=== PATIENT | male | born 1950 | race Caucasian/White ===

== ENCOUNTER 2018-10-14 11:31 | Inpatient (IN) | payer MEDICARE, BC ==
[2018-10-14] MEDS ORDERED: SODIUM CHLORIDE 0.9% 1,000 ML IV STA (11:49)
--- NOTE | 2018-10-14 11:54 | ED ---
Lower Extremity Injury HPI - General Stated Complaint: hip fracture Time Seen by Provider: 10/14/18 11:38 Source: RN notes reviewed, old records reviewed Limitations: no limitations - History of Present Illness Initial Comments: This is a 68 male the ER for evaluation. Patient presents today for evaluation of right lower extremity pain, right lower extremity tenderness. Denies history of trauma. Patient's been doing with multiple areas of pain as of late. Pain in the back pain in the right leg. No history of cancer per patient, patient is a follow-up with orthopedics for back pain as well as hip pain. Patient was seen by orthopedics today and sent to ER for evaluation regarding nontraumatic right hip fracture. Patient has been amateur on his leg and hip. Patient denies any other complaints no headache chest pain shortness [place] pain no significant recent weight loss MD Complaint: hip injury (Right) -: week(s) Injury: Hip: Right, Thigh: Right Type of Injury: other (No Trauma) Place: home Severity: moderate Severity scale (1-10): 7 Improves With: nothing Worsens With: weight bearing Context: other (no fall or trauma) Other Symptoms: loss of consciousness Associated Symptoms: able to partially bear weight - Related Data Home Medications Medication Instructions Recorded Confirmed Acetaminophen [Tylenol Arthritis] 1,300 mg PO Q12H PRN 10/14/18 10/14/18 Finasteride [Proscar] 5 mg PO DAILY 10/14/18 10/14/18 HYDROcodone/APAP 5-325MG [[place] 1 tab PO BID PRN 10/14/18 10/14/18 5-325] Levothyroxine Sodium [Synthroid] 25 mcg PO DAILY 10/14/18 10/14/18 Methocarbamol [Robaxin-750] 750 mg PO QID PRN 10/14/18 10/14/18 Simvastatin [Zocor] 20 mg PO HS 10/14/18 10/14/18 Tamsulosin HCl [Flomax] 0.4 mg PO DAILY 10/14/18 10/14/18 Warfarin [Coumadin] 5 mg PO FR 10/14/18 10/14/18 Warfarin [Coumadin] 7.5 mg PO SUMOTUWETHSA 10/14/18 10/14/18 Allergies Allergy/AdvReac Type Severity Reaction Status Date / Time No Known Allergies Allergy Unverified 10/14/18 12:37 Review of Systems ROS Statement: Those systems with pertinent positive or pertinent negative responses have been documented in the HPI. ROS Other: All systems not noted in ROS Statement are negative. General Exam General appearance: alert, in no apparent distress Head exam: Present: atraumatic, normocephalic, normal inspection Eye exam: Present: normal appearance, PERRL, EOMI. Absent: scleral icterus, conjunctival injection, periorbital swelling ENT exam: Present: normal exam, mucous membranes moist Neck exam: Present: normal inspection. Absent: tenderness, meningismus, lymphadenopathy Respiratory exam: Present: normal lung sounds bilaterally. Absent: respiratory distress, wheezes, rales, rhonchi, stridor Cardiovascular Exam: Present: regular rate, normal rhythm, normal heart sounds. Absent: systolic murmur, diastolic murmur, rubs, gallop, clicks GI/Abdominal exam: Present: soft, normal bowel sounds. Absent: distended, tenderness, guarding, rebound, rigid Extremities exam: Present: normal inspection, tenderness (R hip), normal capillary refill, other (RLE tenderness). Absent: full ROM (decreased), pedal edema, joint swelling, calf tenderness Back exam: Present: normal inspection Neurological exam: Present: alert, oriented X3, CN II-XII intact Psychiatric exam: Present: normal affect, normal mood Skin exam: Present: warm, dry, intact, normal color. Absent: rash Course Vital Signs 10/14/18 10/14/18 10/14/18 11:52 12:00 12:30 Temperature 98.2 F Pulse Rate 85 72 71 Respiratory 15 14 15 Rate Blood Pressure 132/91 132/91 133/90 O2 Sat by Pulse 99 95 98 Oximetry 10/14/18 10/14/18 13:00 13:30 Temperature Pulse Rate 75 74 Respiratory 15 14 Rate Blood Pressure 125/84 138/92 O2 Sat by Pulse 99 95 Oximetry - Reevaluation(s) Reevaluation #1: 10/14/18 11:52 Medical record reviewed Reevaluation #2: 10/14/18 11:[address] Herring's office for evaluation regarding right hip fracture nontraumatic Reevaluation #3: 10/14/18 14:13 Patient not requiring pain control Medical Decision Making - Medical Decision Making 68 male the ER for evaluation sent in for evaluation regarding right hip pain. Patient was sent in with orthopedics for positive outpatient x-ray of right hip fracture nontraumatic. Patient be admitted for surgical evaluation and intervention - Lab Data Result diagrams: 10/14/18 11:43 10/14/18 11:43 Lab Results 10/14/18 10/14/18 10/14/18 Range/Units 11:43 11:43 11:43 WBC 7.4 (3.8-10.6) k/uL RBC 5.82 (4.30-5.90) m/uL Hgb 17.4 (13.0-17.5) gm/dL Hct 51.2 (39.0-53.0) % MCV 87.9 (80.0-100.0) fL MCH 29.8 (25.0-35.0) pg MCHC 33.9 (31.0-37.0) g/dL RDW 13.9 (11.5-15.5) % Plt Count 258 (150-450) k/uL Neutrophils % 70 % Lymphocytes % 15 % Monocytes % 10 % Eosinophils % 2 % Basophils % 2 % Neutrophils # 5.2 (1.3-7.7) k/uL Lymphocytes # 1.1 (1.0-4.8) k/uL Monocytes # 0.7 (0-1.0) k/uL Eosinophils # 0.1 (0-0.7) k/uL Basophils # 0.1 (0-0.2) k/uL PT (9.0-12.0) sec INR (<1.2) APTT (22.0-30.0) sec Sodium 138 (137-145) mmol/L Potassium 4.8 (3.5-5.1) mmol/L Chloride 105 (98-107) mmol/L Carbon Dioxide 19 L (22-30) mmol/L Anion Gap 14 mmol/L BUN 36 H (9-20) mg/dL Creatinine 1.07 (0.66-1.25) mg/dL Est GFR (CKD-EPI)AfAm 83 (>60 ml/min/1.73 sqM) Est GFR (CKD-EPI)NonAf 72 (>60 ml/min/1.73 sqM) Glucose 109 H (74-99) mg/dL Plasma Lactic Acid Rich 2.4 H* (0.7-2.0) mmol/L Calcium 12.0 H (8.4-10.2) mg/dL Phosphorus 3.2 (2.5-4.5) mg/dL Magnesium 2.0 (1.6-2.3) mg/dL Total Bilirubin 0.6 (0.2-1.3) mg/dL AST 26 (17-59) U/L ALT 33 (21-72) U/L Alkaline Phosphatase 116 (38-126) U/L Creatine Kinase 61 (55-170) U/L Troponin I (0.000-0.034) ng/mL Total Protein 10.1 H (6.3-8.2) g/dL Albumin 4.6 (3.5-5.0) g/dL TSH 1.850 (0.465-4.680) mIU/L 10/14/18 10/14/18 Range/Units 11:43 11:43 WBC (3.8-10.6) k/uL RBC (4.30-5.90) m/uL Hgb (13.0-17.5) gm/dL Hct (39.0-53.0) % MCV (80.0-100.0) fL MCH (25.0-35.0) pg MCHC (31.0-37.0) g/dL RDW (11.5-15.5) % Plt Count (150-450) k/uL Neutrophils % % Lymphocytes % % Monocytes % % Eosinophils % % Basophils % % Neutrophils # (1.3-7.7) k/uL Lymphocytes # (1.0-4.8) k/uL Monocytes # (0-1.0) k/uL Eosinophils # (0-0.7) k/uL Basophils # (0-0.2) k/uL PT 44.6 H (9.0-12.0) sec INR 4.6 H (<1.2) APTT 32.6 H (22.0-30.0) sec Sodium (137-145) mmol/L Potassium (3.5-5.1) mmol/L Chloride (98-107) mmol/L Carbon Dioxide (22-30) mmol/L Anion Gap mmol/L BUN (9-20) mg/dL Creatinine (0.66-1.25) mg/dL Est GFR (CKD-EPI)AfAm (>60 ml/min/1.73 sqM) Est GFR (CKD-EPI)NonAf (>60 ml/min/1.73 sqM) Glucose (74-99) mg/dL Plasma Lactic Acid Rich (0.7-2.0) mmol/L Calcium (8.4-10.2) mg/dL Phosphorus (2.5-4.5) mg/dL Magnesium (1.6-2.3) mg/dL Total Bilirubin (0.2-1.3) mg/dL AST (17-59) U/L ALT (21-72) U/L Alkaline Phosphatase (38-126) U/L Creatine Kinase (55-170) U/L Troponin I 0.014 (0.000-0.034) ng/mL Total Protein (6.3-8.2) g/dL Albumin (3.5-5.0) g/dL TSH (0.465-4.680) mIU/L - EKG Data -: EKG Interpreted by Me (EKG shows normal sinus rhythm rate of 80, [place] 144, QRS 102, QTc 429) - Radiology Data Radiology results: report reviewed (Chest x-rays negative for acute disease), image reviewed Disposition Clinical Impression: Closed right hip fracture Disposition: ADMITTED IP TO THIS [facility] Condition: Good Is patient prescribed a controlled substance at d/c from ED?: No Referrals: Saskia Segovia MD [Primary Care Provider] - 1-2 days
[2018-10-14 12:16] LABS: Basophils # (A) 0.1 k/uL (0-0.2); Basophils % (A) 2 %; Eosinophils # (A) 0.1 k/uL (0-0.7); Eosinophils % (A) 2 %; HCT 51.2 % (39.0-53.0); HGB 17.4 gm/dL (13.0-17.5); Lymphocytes # (A) 1.1 k/uL (1.0-4.8); Lymphocytes % (A) 15 %; MCH 29.8 pg (25.0-35.0); MCHC 33.9 g/dL (31.0-37.0); MCV 87.9 fL (80.0-100.0); Monocytes # (A) 0.7 k/uL (0-1.0); Monocytes % (A) 10 %; Neutrophils # (A) 5.2 k/uL (1.3-7.7); Neutrophils % (A) 70 %; Platelet Count 258 k/uL (150-450); RBC 5.82 m/uL (4.30-5.90); RDW 13.9 % (11.5-15.5); WBC 7.4 k/uL (3.8-10.6)
[2018-10-14 12:30] LABS: INR 4.6 (<1.2); Partial Thromboplastin Time 32.6 sec (22.0-30.0); Prothrombin Time 44.6 sec (9.0-12.0)
[2018-10-14 12:35] LABS: Albumin 4.6 g/dL (3.5-5.0); Phosphorus 3.2 mg/dL (2.5-4.5); Total Bilirubin 0.6 mg/dL (0.2-1.3); Total Protein 10.1 g/dL (6.3-8.2)
[2018-10-14 12:36] LABS: Potassium 4.8 mmol/L (3.5-5.1)
--- NOTE | 2018-10-14 12:51 | XR ---
EXAMINATION TYPE: XR chest 2V DATE OF EXAM: 10/14/2018 COMPARISON: NONE HISTORY: Weakness TECHNIQUE: Frontal and lateral views of the chest are obtained. FINDINGS: Patchy right infrahilar airspace disease may represent atelectasis. No pleural effusion or pneumothorax.. Slight eventration of the right hemidiaphragm. The cardiac silhouette size is within normal limits. The osseous structures are intact. IMPRESSION: Patchy right infrahilar airspace disease may be on the basis of atelectasis.
[2018-10-14] MEDS ORDERED: SODIUM CHLORIDE 0.9% 1,000 ML IV ONE (15:11)
[2018-10-14] MEDS ORDERED: ACETAMINOPHEN TAB 500 MG TAB PO PRN (16:23)
[2018-10-14] MEDS ORDERED: METHOCARBAMOL 750 MG TAB PO PRN (16:23)
[2018-10-14] MEDS ORDERED: IPRATROPIUM-ALBUTEROL 3 ML NEB INHALATION PRN (16:25)
[2018-10-14] MEDS: FINASTERIDE 5 MG TAB PO SCH (17:19)
[2018-10-14] MEDS: TAMSULOSIN 0.4 MG CAP.ER.24H PO SCH (17:19)
[2018-10-14] MEDS ORDERED: ALPRAZolam 0.25 MG TAB PO PRN (21:09)
[2018-10-14] MEDS ORDERED: HYDROmorphone 0.5 MG/0.5 ML SYRINGE IVP PRN (21:09)
[2018-10-14] MEDS: IOPAMIDOL-300 CONTRAST 30 ML VIAL (ORAL USE) PO PRN ×2 (21:22→22:21)
[2018-10-14] MEDS: SODIUM CHLORIDE 0.9% 1,000 ML IV SCH (21:22)
[2018-10-14] MEDS: IPRATROPIUM-ALBUTEROL 3 ML NEB INHALATION SCH (21:27)
[2018-10-14 22:30] LABS: Appearance,Urine Cloudy (Clear); Bacteria,Urine Rare /hpf; Bilirubin,Urine Negative (Negative); Blood,Urine Negative (Negative); Color,Urine Light Yellow; Glucose,Urine (UA) Negative (Negative); Ketones,Urine Negative (Negative); Leukocyte Esterase,Urine Negative (Negative); Mucus,Urine Rare /hpf; Nitrite,Urine Negative (Negative); PH, Urine 6.5 (5.0-8.0); Protein,Urine Negative (Negative); RBC,Urine 3 /hpf (0-5); Squamous Epithelial Cell,Urine <1 /hpf (0-4); Urobilinogen,Urine <2.0 mg/dL (<2.0); WBC,Urine <1 /hpf (0-5)
--- NOTE | 2018-10-14 23:25 | CT ---
EXAM: CT Head Without Intravenous Contrast CLINICAL HISTORY: Evaluate for metastatic disease to the brain. TECHNIQUE: Axial computed tomography images of the head/brain without intravenous contrast. CTDI is 49.1 mGy and DLP is 1111 mGy-cm. This CT exam was performed using one or more of the following dose reduction techniques: automated exposure control, adjustment of the mA and/or kV according to patient size, and/or use of iterative reconstruction technique. COMPARISON: None. FINDINGS: Brain: No extra-axial collection. Bony skull is unremarkable. No hemorrhage. Midline shift: No midline shift or mass-effect is noted. Ventricles: Ventricular system is age appropriate. Bones/joints: See above. Soft tissues: Unremarkable. Sinuses: Unremarkable as visualized. No acute sinusitis. Mastoid air cells: Visualized sinuses and mastoid air cells are unremarkable. IMPRESSION: This study is performed without intravenous contrast administration. Grossly, there is no evidence of metastatic disease. Reimaging with contrast administration is advised for the sake of completeness to exclude subtle metastatic lesions.
[2018-10-14] MEDS: HYDROcodone/APAP 5-325MG 1 EACH TAB PO PRN (23:29)
--- NOTE | 2018-10-15 00:09 | CT ---
EXAM: CT Chest With Intravenous Contrast CLINICAL HISTORY: Evaluate for metastatic disease. TECHNIQUE: Axial computed tomography images of the chest with intravenous contrast. CTDI is 21.2 mGy and DLP is 410.7 mGy-cm. This CT exam was performed using one or more of the following dose reduction techniques: automated exposure control, adjustment of the mA and/or kV according to patient size, and/or use of iterative reconstruction technique. COMPARISON: None FINDINGS: Lungs: There is a 5.6 x 4.7 cm aggressive mass lesion within the posterior medial aspect of the right upper lobe best seen on series 201 image 24. This mass lesion has invaded the thoracic vertebral body (T6) at this level and has encroached within the spinal canal with mass-effect upon the thoracic segment of the spinal cord. A 1.5 x 1 cm noncalcified pleural-based nodule is noted posterior laterally of the right lower lobe, best seen on series 201 image 54. Metastatic lesion should be considered. Pleural space: Unremarkable. No pneumothorax. No significant effusion. Heart: Unremarkable. No cardiomegaly. No significant pericardial effusion. Thyroid: 0.8 cm calcified nodule left lobe of the thyroid gland. Bones/joints: Scattered lucencies are noted throughout the thoracic spine worrisome for metastatic disease. Best seen on series 201 image 45, a 1.9 x 1.5 cm soft tissue nodule is noted within the posterior medial aspect of the mid left rib with bony destruction and pathologic fracture noted. Similar findings are noted posterior medially at the left lung base best seen on series 201 image 61. Soft tissues: Unremarkable. Vasculature: Unremarkable. No thoracic aortic aneurysm. Lymph nodes: No pathologic hilar, mediastinal, or axillary lymphadenopathy. IMPRESSION: There is an aggressive mass lesion posterior medially within the right upper lobe with bony destruction of what appears represent the T6 vertebral body. There is invasion into the of spinal canal with mass- effect upon the right lateral aspect of the thoracic segment of the spinal cord. Extensive and diffuse metastatic disease to bone including pathologic fractures of ribs is noted as discussed above. EXAM: CT Abdomen and Pelvis With Intravenous Contrast CLINICAL HISTORY: Evaluate for metastatic disease. TECHNIQUE: Axial computed tomography images of the abdomen and pelvis with intravenous contrast. CTDI is 21.2 mGy and DLP is 410.7 mGy-cm. This CT exam was performed using one or more of the following dose reduction techniques: automated exposure control, adjustment of the mA and/or kV according to patient size, and/or use of iterative reconstruction technique. COMPARISON: None. FINDINGS: Lung bases: Unremarkable. No mass. No consolidation. ABDOMEN: Liver: Unremarkable. No mass. Gallbladder and bile ducts: Unremarkable. No calcified stones. No ductal dilation. Pancreas: Unremarkable. No mass. No ductal dilation. Spleen: Unremarkable. No splenomegaly. Adrenals: Unremarkable. No mass. Kidneys and ureters: Bilateral parapelvic renal cysts. Largest parapelvic cyst measures or possibly 2.8 cm. No hydronephrosis. Stomach and bowel: Unremarkable. No obstruction. No mucosal thickening. PELVIS: Appendix: No findings to suggest acute appendicitis. Bladder: Unremarkable. No mass. Reproductive: Enlarged prostate gland. Prostate gland measures 4.4 x 6.4 cm. ABDOMEN and PELVIS: Intraperitoneal space: Unremarkable. No free air. No significant fluid collection. Bones/joints: Metastatic disease to the proximal right femur is noted with a pathologic fracture of the right femoral neck noted. Scattered lucencies throughout the osseous structures are worrisome for diffuse metastatic disease to bone. No dislocation. Soft tissues: Unremarkable. Vasculature: Unremarkable. No abdominal aortic aneurysm. Lymph nodes: Unremarkable. No enlarged lymph nodes. IMPRESSION: Extensive and diffuse metastatic disease to bone. There is extensive meta static disease of the proximal right femur with a pathologic fracture of the right femoral neck noted. <MYCVCSECTION> [employer] 10/15/18 00:53 Call Doctor Regarding Spinal Cord Compression, called [facility]a on 10/15 00:51 (-04:00)
--- NOTE | 2018-10-15 00:13 | CT ---
EXAM: CT Right Lower Extremity With Intravenous Contrast, Hip CLINICAL HISTORY: Metastatic disease. TECHNIQUE: Axial computed tomography images of the right hip with intravenous contrast. CTDI is 19.6 mGy and DLP is 410.7 mGy-cm. This CT exam was performed using one or more of the following dose reduction techniques: automated exposure control, adjustment of the mA and/or kV according to patient size, and/or use of iterative reconstruction technique. COMPARISON: CT imaging of the abdomen and pelvis performed on the same day. FINDINGS: Bones/joints: There is diffuse and extensive metastatic disease to bone including the right hemipelvis. There is extensive diffuse metastatic disease of the proximal femur with an associated pathologic fracture of the right femoral neck. Varus angulation at the fracture site is noted. No dislocation. Soft tissues: Unremarkable. No abnormal contrast enhancement. IMPRESSION: Diffuse and extensive osseous metastatic disease. Metastatic disease to the proximal right femur. Acute pathologic fracture of the right femoral neck with varus angulation.
[2018-10-15] MEDS: TEMAZEPAM 15 MG CAP PO PRN (01:55)
--- NOTE | 2018-10-15 04:58 | HP ---
HISTORY AND PHYSICAL DATE OF SERVICE: 10/14/2018 CHIEF COMPLAINTS: Hip pain and fracture and back pain. HISTORY OF PRESENT ILLNESS: This 68-year-old gentleman with a past history of DVT of left leg, history of hypertension, hyperlipidemia, history of enlarged prostate, being followed by Dr. Segovia in the outpatient setting was apparently working heavily on his newly acquired CBIT A/S [facility]. The patient apparently had some back pain and being evaluated by Dr. Carter and was suggested conservative line of management with pain medication as well as Motrin, but subsequently the patient worked more after some relief, but about 2 weeks ago the patient had developed significant right hip pain, which has progressively increased in intensity. Evaluated by Dr. Herring in the office today. The patient was found to have right hip fracture and the patient is referred to [facility] Emergency Room and admitted for evaluation and treatment. There is no history of fever, rigors or chills. No history of headache, loss of consciousness or seizure. No chest pain, palpitations, hematochezia or melena. No history of weight gain or weight loss recently. PAST MEDICAL HISTORY: History of DVT, hypertension, hyperlipidemia, history of hypothyroidism, history of enlarged prostate. MEDICATIONS: 1. Coumadin 5 mg Friday and 7.5 mg Friday, Friday, Friday, Friday, , Friday. 2. Flomax 0.4 daily. 3. Zocor 20 mg q.h.s. 4. Robaxin 750 mg q.i.d. p.r.n. 5. Synthroid 25 mcg. 6. Zumbrota 5 mg b.i.d. p.r.n. 7. Proscar 5 mg p.o. 8. Tylenol 1300 mg p.o. b.i.d. p.r.n. ALLERGIES: None. FAMILY HISTORY: History of prostate disorder in the family. SOCIAL HISTORY: History of smoking. No alcohol. REVIEW OF SYSTEMS: ENT: No diminished vision. No diminished hearing. CARDIOVASCULAR: No angina. RESPIRATORY: As mentioned earlier. GI: No nausea. : As mentioned earlier. NERVOUS SYSTEM: No numbness or weakness. ALLERGY/IMMUNOLOGY: No asthma or hayfever. MUSCULOSKELETAL: As mentioned earlier. HEMATOLOGY: As mentioned earlier. ENDOCRINE: Hypothyroidism. CONSTITUTIONAL: As mentioned earlier. PSYCHIATRY: As mentioned earlier. PHYSICAL EXAMINATION: Alert and oriented x3. Pulse 75, blood pressure 130/70, respiration 17, temperature 98.9, pulse ox 97% on room air. HEENT: Conjunctivae normal. Oral mucosa moist. NECK: No jugular venous distention. No lymph node enlargement. CARDIOVASCULAR: S1, S2. RESPIRATORY: Diminished breath sounds at the bases. No rhonchi, no crackles. ABDOMEN: Soft. Minimal tenderness in the right lower ( ) area. No mass palpable. No guarding, no rigidity. Bowel sounds present. LEGS: Right hip movements are painful. Otherwise, no rash, no edema, no swelling. NERVOUS SYSTEM: Higher functions mentioned earlier. Moves all limbs except the right limb. No focal deficits. LYMPHATICS: No lymph node in neck or axilla. SKIN: The patient has Manrique de Yakov spots on the chest. JOINTS: As mentioned earlier. LABS: CBC within normal limits. INR is 4.6. Sodium 130, potassium 4.8 and glucose 109. Lactic acid 2.42, improved to 1.8. Calcium is 12 and total protein is 10.1. ASSESSMENT: 1. Back pain and acute right hip pain with right hip fracture, rule out pathologic fracture. 2. Coumadin coagulopathy. 3. Hypercalcemia, rule out malignancy. 4. Possible right lung pneumonia. 5. Hyperglobulinemia, rule out multiple myeloma. 6. History of deep vein thrombosis. 7. Hyperlipidemia. 8. Hypothyroidism. 9. History enlarged prostate. 10.Coumadin coagulopathy. RECOMMENDATIONS AND DISCUSSION: In this 68-year-old gentleman who presented with multiple complex medical issues, we will monitor the patient closely, continue the current medications, continue symptomatic treatment. Will also initiate empiric antibiotics for the possible right lung pneumonia. Otherwise, I will order CT scans of the chest, abdomen and pelvis and as well as bone scan for evaluation. Serum protein electrophoreses also will be ordered. Continue with IV hydration. We will closely monitor with multiple consultants including Hematology/ Oncology. Prognosis guarded. Further recommendations to follow. MMODL / IJN: [id number] /
[2018-10-15] MEDS: LEVOTHYROXINE 25 MCG TAB PO SCH (05:14)
[2018-10-15 07:17] LABS: Basophils % (A) 1 %; Eosinophils # (A) 0.2 k/uL (0-0.7); Eosinophils % (A) 3 %; HCT 45.6 % (39.0-53.0); HGB 14.9 gm/dL (13.0-17.5); Lymphocytes # (A) 1.2 k/uL (1.0-4.8); Lymphocytes % (A) 19 %; MCH 29.5 pg (25.0-35.0); MCHC 32.6 g/dL (31.0-37.0); MCV 90.5 fL (80.0-100.0); Mean Platelet Volume 7.3; Monocytes # (A) 0.6 k/uL (0-1.0); Monocytes % (A) 9 %; Neutrophils # (A) 4.5 k/uL (1.3-7.7); Neutrophils % (A) 68 %; Platelet Count 213 k/uL (150-450); RBC 5.04 m/uL (4.30-5.90); RDW 15.3 % (11.5-15.5); WBC 6.6 k/uL (3.8-10.6)
[2018-10-15 07:26] LABS: INR 3.5 (<1.2); Prothrombin Time 33.8 sec (9.0-12.0)
[2018-10-15 08:09] LABS: Calcium 10.3 mg/dL (8.4-10.2); Potassium 4.5 mmol/L (3.5-5.1)
[2018-10-15] MEDS: IPRATROPIUM-ALBUTEROL 3 ML NEB INHALATION SCH ×3 (08:29→19:30)
[2018-10-15] MEDS: HYDROcodone/APAP 5-325MG 1 EACH TAB PO PRN (08:36)
[2018-10-15] MEDS ORDERED: PHYTONADIONE ORAL 5 MG/5 ML ORAL.SYRG PO STA (09:41)
[2018-10-15 12:01] LABS: Protein, Total 7.8 g/dL (6.2-8.2)
[2018-10-15] MEDS: DEXAMETHASONE SOD PHOSPHATE 4 MG/ML 1 ML VIAL IV SCH ×3 (12:09→18:15)
--- NOTE | 2018-10-15 12:41 | P.CNOR ---
History of Present Illness - [facility] Consult date: 10/15/18 Consult reason: fracture History of present illness: Patient is a pleasant 68-year-old male that is known to our office and presented initially with right hip pain. X-rays in office showed a fracture of the right femoral neck which could be pathologic. He was sent to [facility] for further workup and management. He continues to have hip pain as expected. He was also noted to have labored breathing in office. He was admitted through the emergency department and admitted to internal medicine where several tests have been performed. Oncology has been consulted as well. Computed tomography scan of the chest, abdomen and pelvis and right hip show what appears to be metastatic-type lesions to the right proximal femur. There is also a mass encroaching upon the thoracic spinal cord. He has no new complaints today. Review of Systems All systems: negative Constitutional: Denies chills, Denies fever Eyes: denies blurred vision, denies pain Ears, nose, mouth and throat: Denies headache, Denies sore throat Cardiovascular: Denies chest pain, Denies shortness of breath Respiratory: Denies cough Gastrointestinal: Denies abdominal pain, Denies diarrhea, Denies nausea, Denies vomiting Musculoskeletal: Denies myalgias Integumentary: Denies pruritus, Denies rash Neurological: Denies numbness, Denies weakness Psychiatric: Denies anxiety, Denies depression Endocrine: Denies fatigue, Denies weight change Past Medical History Past Medical History: Deep Vein Thrombosis (DVT), Hyperlipidemia, Thyroid Disorder Additional Past Medical History / Comment(s): Enlarged prostate History of Any Multi-Drug Resistant Organisms: None Reported Past Surgical History: No Surgical Hx Reported Past Anesthesia/Blood Transfusion Reactions: No Reported Reaction Past Psychological History: No Psychological Hx Reported Smoking Status: Never smoker Past Alcohol Use History: Occasional Past Drug Use History: None Reported - Past Family History Father Family Medical History: Prostate Disorder Brother(s) Family Medical History: Prostate Disorder Medications and Allergies Home Medications Medication Instructions Recorded Confirmed Type Acetaminophen [Tylenol Arthritis] 1,300 mg PO Q12H PRN 10/14/18 10/14/18 History Finasteride [Proscar] 5 mg PO DAILY 10/14/18 10/14/18 History HYDROcodone/APAP 5-325MG [[place] 1 tab PO BID PRN 10/14/18 10/14/18 History 5-325] Levothyroxine Sodium [Synthroid] 25 mcg PO DAILY 10/14/18 10/14/18 History Methocarbamol [Robaxin-750] 750 mg PO QID PRN 10/14/18 10/14/18 History Simvastatin [Zocor] 20 mg PO HS 10/14/18 10/14/18 History Tamsulosin HCl [Flomax] 0.4 mg PO DAILY 10/14/18 10/14/18 History Warfarin [Coumadin] 5 mg PO FR 10/14/18 10/14/18 History Warfarin [Coumadin] 7.5 mg PO SUMOTUWETHSA 10/14/18 10/14/18 History Allergies Allergy/AdvReac Type Severity Reaction Status Date / Time No Known Allergies Allergy Unverified 10/14/18 12:37 Physical Examination In general he is in no acute distress. He is AO 5. Inspection of the right lower extremity is benign. There is no deformity. Ra nge of motion of the hip is not tested due to fracture. Neurovascular status with Motor and sensation are grossly intact throughout the lower extremities. The calves are soft and nontender. there is 2+ dorsalis pedis pulse and less than 2 second capillary refill present. Results - Labs Labs: Abnormal Lab Results - Last 24 Hours (Table) 10/14/18 10/14/18 10/14/18 Range/Units 11:43 11:43 21:45 ESR (0-15) mm/hr PT (9.0-12.0) sec INR (<1.2) Carbon Dioxide 19 L (22-30) mmol/L BUN 36 H (9-20) mg/dL Glucose 109 H (74-99) mg/dL Plasma Lactic Acid Rich 2.4 H* (0.7-2.0) mmol/L Calcium 12.0 H (8.4-10.2) mg/dL Total Protein 10.1 H (6.3-8.2) g/dL Urine Bacteria Rare H (None) /hpf Urine Mucus Rare H (None) /hpf 10/14/18 10/15/18 10/15/18 Range/Units 22:33 06:40 06:40 ESR 28 H (0-15) mm/hr PT 33.8 H (9.0-12.0) sec INR 3.5 H (<1.2) Carbon Dioxide (22-30) mmol/L BUN 26 H (9-20) mg/dL Glucose (74-99) mg/dL Plasma Lactic Acid Rich (0.7-2.0) mmol/L Calcium 10.3 H (8.4-10.2) mg/dL Total Protein (6.3-8.2) g/dL Urine Bacteria (None) /hpf Urine Mucus (None) /hpf H & H 10/14/18 10/15/18 Range/Units 11:43 06:40 Hgb 17.4 14.9 (13.0-17.5) gm/dL Hct 51.2 45.6 (39.0-53.0) % Coagulation 10/14/18 10/15/18 Range/Units 11:43 06:40 INR 4.6 H 3.5 H (<1.2) Result Diagrams: 10/15/18 06:40 10/15/18 06:40 - Diagnostic results Hip CT: report reviewed, image reviewed Assessment and Plan (1) Closed right hip fracture Narrative/Plan: Patient is been seen by Dr. Herring. From an orthopedic standpoint in regards to his pathologic right hip fracture there are no plans for surgical invention here [facility]. We recommended transfer possibly to [facility] where they have an orthopedic oncologist for surgical intervention should they desire. He would also need the mass encroaching upon the thoracic spine to be addressed as well at a tertiary facility. We recommend continued pain management and nonweightbearing while an inpatient here at [facility]. Current Visit: Yes Status: Acute Priority: Medium Code(s): S72.001A - FRACTURE OF UNSP PART OF NECK OF RIGHT FEMUR, INIT SNOMED Code(s): 556853927 Time with Patient: Less than 30
--- NOTE | 2018-10-15 14:36 | MR ---
EXAMINATION TYPE: MR thoracic spine wo/w con DATE OF EXAM: 10/15/2018 2:18 PM COMPARISON: NONE HISTORY: Cord compression/Lung mass/Admitted for Rt hip fx Multiplanar MultiSpin echo imaging of the thoracic spine was performed. Pre and postcontrast enhance d images submitted. Contrast: 9 mL Gadavist Lobulated right paraspinal at T6 destructive mass measuring 5.6 x 4.2 x 3.4 cm with destruction of th e adjacent vertebral body and epidural extension. There is no evidence for infiltration into the spin al cord at this level mild cord displacement is noted from right to left. Loss of vertebral body heig ht involving T6. Additional lesions identified involving virtually all thoracic segments. Right lung mass. See CT from 10/14/2018. IMPRESSION: 1. Right paraspinal mass with infiltration into the T6 vertebral segment and epidural space. Mass is less than 1 mm from the spinal cord without infiltration at this time. There is mild displacement of the spinal cord from left to right without overt compression at this time. Multiple metastatic lesion s are noted of the visualized spine.
--- NOTE | 2018-10-15 15:05 | NM ---
EXAMINATION TYPE: NM bone scan whole body DATE OF EXAM: 10/15/2018 COMPARISON: NONE HISTORY: Abnormal CT scan rule out metastatic disease Delayed whole-body scanning was performed following the injection of 25.2 mCi Tc 99m MDP. Images acq uired 6 hours post injection. FINDINGS: Intense radiotracer accumulation noted at the approximate right paraspinal T6 level and T6 vertebral body compatible with known mass and metastatic disease. Multiple foci of increased radiotracer accumu lation involving numerous thoracic segments as well as L1. Bilateral lateral rib uptake noted. Intens e uptake noted to overlie the left scapular tip. Intense uptake noted to involve the right femoral he ad and neck. IMPRESSION: Findings compatible with metastatic disease. Probable pathologic fracture right hip.
--- NOTE | 2018-10-15 15:42 | P.CNPUL ---
History of Present Illness Consult date: 10/15/18 Reason for consult: lung mass History of present illness: This is a 68-year-old male patient was having pain in his right posterior shoulder blade and right hip area. He was progressively getting worse to the point where he was unable to walk and he was moving with the help of a cane. [facility] and he was seen by Dr. Herring and the patient was found to have a pathologic fracture of the right femoral neck. The patient did not have any trauma prior to this event. He was immediately sent over to the hospital where he was subjected to further workup and he was found to have hypercalcemia with a calcium level of 12 and further evaluation with a CAT scan of the chest abdomen and pelvis showed a 5.6 x 4.7 cm mass within the posterior medial aspect of the right upper lobe and the mass was invading the thoracic vertebral body at the level of T6 and was including the spinal canal with mass effect on the thoracic segment of the spinal cord. There was another 1.5 x 1 cm noncalcified pleural-based nodule posterior lateral part of the right lower lobe. The patient was also found to have another 1.5 x 1.5 cm soft tissue nodule in the posterior medial aspect of the mid left with bony destruction and pathologic fracture. The bone scan showed metastatic disease to the skeletal system with intense uptake in the right paraspinal T6 level and T6 vertebral body in addition to multiple foci of increased uptake within the thoracic segment as well as L1 and bilateral lateral rib uptake and uptake in the left scapular tip and in the right femoral head and neck area. MRI of the 6 by showed a right paraspinal mass with infiltration into the T6 vertebral segment and epidurals space. Mass is less than 1 mm from the spinal cord without infiltration at this point in time. There is mild displacement of the spinal cord from [id number] without overt compression at this point in time. The patient was subjected to hydration. Calcium level improved and is down to 10.3. The patient is laying comfortably in bed. No hemoptysis. No pleurisy. Pain is under good control for now. Denies having any motor weakness in lower extremities. No urinary or stool incontinence. No numbness or tingling in lower extremities bilaterally. No motor deficits. His pain was mainly in the right hip area and he was unable to bear weight. No weight loss. No other constitutional symptoms. He has had previous history of DVT and he is told to have a underlying hypercoagulability and based on that the patient was subjected to long-term anticoagulation. Review of Systems Constitutional: Denies chills, Denies fever Eyes: denies as per HPI, denies blurred vision, denies bulging eye, denies decreased vision, denies diplopia, denies discharge, denies dry eye, denies irritation, denies itching, denies pain, denies photophobia, denies loss of peripheral vision, denies loss of vision, denies tunnel vision/blind spots Ears: deny: decreased hearing, ear discharge, earache, tinnitus Ears, nose, mouth and throat: Denies headache, Denies sore throat Breasts: absent: as per HPI, gynecomastia Cardiovascular: Reports chest pain Respiratory: Reports as per HPI Gastrointestinal: Reports as per HPI Genitourinary: Reports as per HPI Musculoskeletal: Reports as per HPI, Reports fractures, Reports gait dysfunction Musculoskeletal: absent: ankle pain, ankle stiffness, ankle swelling Integumentary: Denies pruritus, Denies rash Neurological: Reports as per HPI Psychiatric: Reports as per HPI Endocrine: Reports as per HPI Hematologic/Lymphatic: Reports as per HPI Allergic/Immunologic: Reports as per HPI Past Medical History Past Medical History: Deep Vein Thrombosis (DVT), Hyperlipidemia, Thyroid Disorder Additional Past Medical History / Comment(s): BPH, previous history of DVT with hypercoagulability maintained on long-term and to coagulation with warfarin, hyperlipidemia History of Any Multi-Drug Resistant Organisms: None Reported Past Surgical History: No Surgical Hx Reported Past Anesthesia/Blood Transfusion Reactions: No Reported Reaction Past Psychological History: No Psychological Hx Reported Smoking Status: Never smoker Past Alcohol Use History: Occasional Past Drug Use History: None Reported - Past Family History Father Family Medical History: Cancer (Lung cancer in the father who from complications of lung cancer), Prostate Disorder Brother(s) Family Medical History: Prostate Disorder Medications and Allergies Home Medications Medication Instructions Recorded Confirmed Type Acetaminophen [Tylenol Arthritis] 1,300 mg PO Q12H PRN 10/14/18 10/14/18 History Finasteride [Proscar] 5 mg PO DAILY 10/14/18 10/14/18 History HYDROcodone/APAP 5-325MG [[place] 1 tab PO BID PRN 10/14/18 10/14/18 History 5-325] Levothyroxine Sodium [Synthroid] 25 mcg PO DAILY 10/14/18 10/14/18 History Methocarbamol [Robaxin-750] 750 mg PO QID PRN 10/14/18 10/14/18 History Simvastatin [Zocor] 20 mg PO HS 10/14/18 10/14/18 History Tamsulosin HCl [Flomax] 0.4 mg PO DAILY 10/14/18 10/14/18 History Warfarin [Coumadin] 5 mg PO FR 10/14/18 10/14/18 History Warfarin [Coumadin] 7.5 mg PO SUMOTUWETHSA 10/14/18 10/14/18 History Allergies Allergy/AdvReac Type Severity Reaction Status Date / Time No Known Allergies Allergy Unverified 10/14/18 12:37 Physical Exam Vitals: Vital Signs Temp Pulse Resp BP Pulse Ox 10/15/18 08:05 66 14 10/15/18 07:00 98 F 66 14 114/65 96 10/15/18 01:09 98.0 F 71 14 99/52 95 10/14/18 19:52 98.8 F 75 18 119/73 96 10/14/18 16:45 98.9 F 75 17 136/77 97 Intake and Output 10/15/18 10/15/18 10/15/18 06:59 14:59 22:59 Intake Total 900 Balance 900 Intake: Intake, IV Titration 900 Amount Sodium Chloride 0.9% 1, 900 000 ml @ 100 mls/hr IV . Q10H [facility] Rx#:[id number] Other: Voiding Method Urinal # Voids 3 The patient appeared well nourished and normally developed. Vital signs as documented. Head exam is unremarkable. No scleral icterus or corneal arcus noted. Neck is without jugular venous distension, thyromegaly, or carotid bruits . Carotid upstrokes are brisk bilaterally. Lungs are clear to auscultation and percussion. Cardiac exam reveals the PMI to be normally sized and situated. Rhythm is regular. First and second heart sounds normal. No murmurs, rubs or gallops. Abdominal exam reveals normal bowel sounds, no masses, no organomegaly and no aortic enlargement. Extremities are nonedematous and both femoral and pedal pulses are normal. The patient has pain in the right hip upon passive range of motion. Upon inspection the examination is benign and there is no significant deformity. Neurovascularly intact. Examination of the skin revealed no evidence of significant rashes, suspicious appearing nevi or other concerning lesions. Neurologically the patient has equal and symmetrical pulses bilaterally. No Babinski. No clonus. Gait was not assessed. Cranial nerves are intact. Results - Laboratory Findings CBC and BMP: 10/15/18 06:40 10/15/18 06:40 PT/INR, D-dimer PT 33.8 sec (9.0-12.0) H 10/15/18 06:40 INR 3.5 (<1.2) H 10/15/18 06:40 Abnormal lab findings: Abnormal Labs 10/14/18 10/14/18 10/14/18 11:43 11:43 11:43 ESR PT 44.6 H INR 4.6 H APTT 32.6 H Carbon Dioxide 19 L BUN 36 H Glucose 109 H Plasma Lactic Acid Rich 2.4 H* Calcium 12.0 H Total Protein 10.1 H PTH Intact Urine Bacteria Urine Mucus 10/14/18 10/14/18 10/14/18 21:45 22:33 22:33 ESR 28 H PT INR APTT Carbon Dioxide BUN Glucose Plasma Lactic Acid Rich Calcium Total Protein PTH Intact 7.5 L Urine Bacteria Rare H Urine Mucus Rare H 10/15/18 10/15/18 06:40 06:40 ESR PT 33.8 H INR 3.5 H APTT Carbon Dioxide BUN 26 H Glucose Plasma Lactic Acid Rich Calcium 10.3 H Total Protein PTH Intact Urine Bacteria Urine Mucus - Diagnostic Findings CT scan - chest: image reviewed Assessment and Plan Plan: 1 metastatic carcinoma the patient has a 5.6 x 4.7 cm mass within the posterior medial aspect of the right upper lobe that has invaded into the vertebral body of T6 spine encroaching on the spinal canal. MRI of the spine did not show any mass effect and the mass was probably within few millimeters away from the spinal cord. Neurologically the patient does not have any motor deficits in lower extremities bilaterally. Nevertheless, the patient has extensive skeletal metastases including a pathologic fracture of the right hip, invasion of the T6 body, numerous thoracic segments involved at the level of L1 and bilateral rib uptake and left scapular tip uptake with cancer. 2 pathologic right hip fracture 3 DVT, history of and the patient has been long-term anticoagulation him a current INR is at 3.5 4 BPH 5 hyperlipidemia 6 hypothyroidism 7 hypercalcemia secondary to above, improved and the calcium level is down to 10.3 Plan I had a discussion with the orthopedic surgeon. This is a complex fracture that may need to be treated by a orthopedic oncology and the recommendation was transferred this patient to [facility] for surgical intervention and fixation of the right hip. I think the diagnosis can be established, surgery from samples obtained at the time of surgery. If not, a fine-needle aspirate of the thoracic mass can be obtained later stage. Medical oncology and radiation oncology will be involved. Neurosurgery may be of a value if the patient shows any signs of neurologic deficits in lower extremities or with compression. Prognosis poor. For now we are going to recommend transferring this patient for surgical repair of the right hip pathologic fracture.
--- NOTE | 2018-10-15 17:14 | P.CONS ---
History of Present Illness - Reason for Consult Consult date: 10/15/18 Concern for metastatic cancer Requesting physician: Alejandro Newton - Chief Complaint I have hip pain - History of Present Illness Mick Khalil is a pleasant 68 year old never smoker with progressive right hip pain and no previous diagnosis of malignancy. He was walking until earlier this week. He underwent evaluation with Dr. Herring and the patient was found to have a pathologic fracture of the right femoral neck. On presentation to the ED found to have hypercalcemia with a calcium level of 12 and further evaluation with a CAT scan of the chest abdomen and pelvis showed a 5.6 x 4.7 cm mass within the posterior medial aspect of the right upper lobe and the mass was invading the thoracic vertebral body at the level of T6 and was including the spinal canal with mass effect on the thoracic segment of the spinal cord. Also noted was a pathologic fracture of the right femoral neck. MRI of the spine visualized mild displacement of the spinal cord from [id number] without overt compression at this point in time. The patient is laying comfortably in bed. No hemoptysis. Pain is under good control. Denies having any motor weakness in lower extremities or sensation changes. No urinary or stool incontinence. Review of Systems Constitutional: Denies chills, Denies fever Ears, nose, mouth and throat: Denies headache, Denies sore throat Cardiovascular: Denies chest pain, Denies shortness of breath Respiratory: Denies cough Musculoskeletal: right: hip pain Neurological: Denies numbness, Denies weakness Past Medical History Past Medical History: Deep Vein Thrombosis (DVT), Hyperlipidemia, Thyroid Disorder Additional Past Medical History / Comment(s): BPH, previous history of DVT with hypercoagulability maintained on long-term and to coagulation with warfarin, hyperlipidemia History of Any Multi-Drug Resistant Organisms: None Reported Past Surgical History: No Surgical Hx Reported Past Anesthesia/Blood Transfusion Reactions: No Reported Reaction Past Psychological History: No Psychological Hx Reported Smoking Status: Never smoker Past Alcohol Use History: Occasional Past Drug Use History: None Reported - Past Family History Father Family Medical History: Cancer (Lung cancer in the father who from complications of lung cancer), Prostate Disorder Brother(s) Family Medical History: Prostate Disorder Medications and Allergies Home Medications Medication Instructions Recorded Confirmed Type Acetaminophen [Tylenol Arthritis] 1,300 mg PO Q12H PRN 10/14/18 10/14/18 History Finasteride [Proscar] 5 mg PO DAILY 10/14/18 10/14/18 History HYDROcodone/APAP 5-325MG [[place] 1 tab PO BID PRN 10/14/18 10/14/18 History 5-325] Levothyroxine Sodium [Synthroid] 25 mcg PO DAILY 10/14/18 10/14/18 History Methocarbamol [Robaxin-750] 750 mg PO QID PRN 10/14/18 10/14/18 History Simvastatin [Zocor] 20 mg PO HS 10/14/18 10/14/18 History Tamsulosin HCl [Flomax] 0.4 mg PO DAILY 10/14/18 10/14/18 History Warfarin [Coumadin] 5 mg PO FR 10/14/18 10/14/18 History Warfarin [Coumadin] 7.5 mg PO SUMOTUWETHSA 10/14/18 10/14/18 History Allergies Allergy/AdvReac Type Severity Reaction Status Date / Time No Known Allergies Allergy Unverified 10/14/18 12:37 Physical Exam Vitals: Vital Signs Temp Pulse Resp BP Pulse Ox 10/15/18 08:05 66 14 10/15/18 07:00 98 F 66 14 114/65 96 10/15/18 01:09 98.0 F 71 14 99/52 95 10/14/18 19:52 98.8 F 75 18 119/73 96 10/14/18 16:45 98.9 F 75 17 136/77 97 Intake and Output 10/15/18 10/15/18 10/15/18 06:59 14:59 22:59 Intake Total 900 Balance 900 Intake: Intake, IV Titration 900 Amount Sodium Chloride 0.9% 1, 900 000 ml @ 100 mls/hr IV . Q10H [facility] Rx#:[id number] Other: Voiding Method Urinal # Voids 3 - Constitutional General appearance: average body habitus - Neck Neck: normal ROM - Respiratory Respiratory: bilateral: CTA - Cardiovascular Rhythm: regular - Neurologic Neurologic: CNII-XII intact - Musculoskeletal Musculoskeletal: right sided weakness (No focal neurologic deficits) Results CBC & Chem 7: 10/15/18 06:40 10/15/18 06:40 Labs: Abnormal Lab Results - Last 24 Hours (Table) 10/14/18 10/14/18 10/14/18 Range/Units 21:45 22:33 22:33 ESR 28 H (0-15) mm/hr PT (9.0-12.0) sec INR (<1.2) BUN (9-20) mg/dL Calcium (8.4-10.2) mg/dL PTH Intact 7.5 L (14.0-72.0) pg/mL Urine Bacteria Rare H (None) /hpf Urine Mucus Rare H (None) /hpf 10/15/18 10/15/18 Range/Units 06:40 06:40 ESR (0-15) mm/hr PT 33.8 H (9.0-12.0) sec INR 3.5 H (<1.2) BUN 26 H (9-20) mg/dL Calcium 10.3 H (8.4-10.2) mg/dL PTH Intact (14.0-72.0) pg/mL Urine Bacteria (None) /hpf Urine Mucus (None) /hpf Assessment and Plan Assessment: 68 year old never smoker with right lung mass invading T6 body into the canal, but not involving the cord and wide spread bony disease with right hip fracture. Plan: 1) Likely metastatic carcinoma with right hip fracture - Will likely require surgical intervention. Did discuss case with orthopaedic oncology ([email or web address]). She would prefer tissue diagnosis if possible. If not, however, would proceed with evaluation at [facility]. - No weight bearing. - protein electrophoresis pending. Will add PSA. Suspicion for primary lung cancer. 2) T6 canal involvement - Patient with no neurologic symptoms. Will require radiation after diagnosis. - Continue dexamethasone. Will continue to follow. Pa Dinh [phone]
[2018-10-15] MEDS: TAMSULOSIN 0.4 MG CAP.ER.24H PO SCH (18:16)
[2018-10-15] MEDS: FINASTERIDE 5 MG TAB PO SCH (18:16)
--- NOTE | 2018-10-15 20:24 | PN ---
PROGRESS NOTE DATE OF SERVICE: 10/15/2018 This 68-year-old gentleman who was admitted with severe back pain also had significant fractures involving the right hip; possibly pathological fractures. The patient had multiple evaluations, including brain CT scan since last night. The brain CT showed no acute abnormality, done without any contrast. The patient also had a CT scan of the chest, abdomen and pelvis which showed extensive diffuse metastatic disease of the bone and extensive metastatic disease of the proximal right femur. Pathologic fracture of the right femoral neck was also noted. Aggressive mass lesion posteromedially within the right upper lobe with bony destruction of what appears to be T6 vertebral body was also noted. There is invasion into the spinal canal with mass effect upon the right lateral aspect of the thoracic segment of the spinal cord. It also noted extensive diffuse metastatic disease of the bone. The fracture was also noted. A bone scan was done which showed metastatic disease and a possible pathological fracture of the right hip. MRI of the thoracic spine showed evidence of right paraspinal mass with infiltration to the T6 vertebral segment and epidural space. Mass is less than 1 mm from the spinal cord without any infiltration at this time. There was mild displacement of the spinal cord from left to right without any compression. Multiple metastatic lesions were noted in the visualized spine, also. The patient was also seen by the multiple consultants, including Orthopedic Surgery, Pulmonology and Radiation Oncology. Serum protein electrophoresis and were also ordered. Past medical history reviewed. REVIEW OF SYSTEMS: CARDIOVASCULAR SYSTEM: No angina, palpitations. RESPIRATORY SYSTEM: As mentioned earlier. GI: As mentioned earlier. : No dysuria or retention. NERVOUS SYSTEM: No numbness, weakness. CURRENT MEDICATIONS: Reviewed. They include: 1. Tylenol 1000 mg q.6 p.r.n. 2. [place] 5 mg b.i.d. p.r.n. 3. DuoNeb q.i.d. and p.r.n. 4. Xanax 0.25 t.i.d. 5. Rocephin 1 gram IV daily. 6. Decadron 6 mg IV q.6. 7. Proscar. 8. Dilaudid 5 mg q.6 p.r.n. 9. Synthroid. 10.Robaxin. 11.Flomax. 12.Restoril. PHYSICAL EXAMINATION: Patient is alert, oriented x3. The pulse is 66, blood pressure 114/65, respiration 14, temperature 98 degrees, pulse ox 96% on room air. HEENT: Conjunctivae normal. NECK: No jugular venous distention. CARDIOVASCULAR SYSTEM: S1, S2 muffled. RESPIRATORY SYSTEM: Breath sounds diminished at the bases. A few scattered rhonchi. No crackles. ABDOMEN: Soft, non-tender. Right hip is painful. NERVOUS SYSTEM: No focal deficit. LABS: CBC within normal limits. INR is 3.5. PTH intact is 7.5, which is suppressed. Calcium is 10.3, which is improved. ASSESSMENT: 1. T6 vertebral involvement with right hip fracture, possibly a pathologic fracture, with extensive involvement with possible bony metastases with right lung lesion, possibly a metastatic lesion. 2. Coumadin coagulopathy. 3. Hypercalcemia, possibly malignancy. 4. Possible right lung pneumonia. 5. Hyperglobulinemia; rule out multiple myeloma. 6. History of deep vein thrombosis. 7. Hyperlipidemia. 8. Coumadin monitoring. 9. Hypothyroidism. 10.History of enlarged prostate. 11.Coumadin coagulopathy. RECOMMENDATIONS AND DISCUSSION: In this 68-year-old gentleman who presented with multiple medical issues, at this time I recommend to continue the current medication, continue symptomatic treatment. MRI has been done. MRI showed no significant spinal cord involvement at this time. The radiation therapy is on hold currently. We will follow the patient closely with orthopedic consultants. Possible evaluation by Orthopedic Oncology in [facility] is also considered. The diagnosis can be established by surgical biopsy at the time of operation. Other options will be fine-needle aspiration at this time. We are awaiting the serum protein electrophoresis as well as PSA levels. Prognosis is extremely guarded because of multiple complex medical issues. Discussed with the patient, who understands. Further recommendations to follow. MMODL / IJN: [id number] / MTDD
--- NOTE | 2018-10-15 22:49 | P.CONS ---
History of Present Illness - Reason for Consult Consult date: 10/15/18 metastatic malignancy - History of Present Illness The pt is A 68-year-old white male, with overall well-controlled medical problems. The patient states that he had been working on his cabin for a few months and had developed some mid back pain about 3 months prior to this admission. He had attributed this to musculoskeletal strain. The pain slowly became progressive, with radiation on around, in the mid chest region. He then developed right hip pain about a month ago that also increased progressively in intensity to where he was having difficulty in bending weight with the right lower extremity. He was seen by orthopedic surgery and x-rays revealed evidence of a pathologic appearing fracture. He was therefore sent in to the hospital and admitted for further management As part of his workup he had CT scan of the hip which confirmed the presence of fracture with abnormal bony appearance in the proximal femur, highly suggestive of a pathologic etiology. He also had CT scan of the chest abdomen and pelvis which revealed a right paraspinal mass with invasion into T6. In addition other bone lesions were noted in the spine. Consult was therefore placed for further evaluation and recommendation He denied any prior history of malignancy. He is a nonsmoker Review of Systems Constitutional: Reports chronic pain, Reports weight loss Eyes: denies blurred vision, denies pain Ears: deny: decreased hearing, ear discharge, earache, tinnitus Ears, nose, mouth and throat: Denies headache, Denies sore throat Cardiovascular: Denies chest pain, Denies shortness of breath Respiratory: Reports pain, Denies cough Gastrointestinal: Denies abdominal pain, Denies diarrhea, Denies nausea, Denies vomiting Genitourinary: Reports as per HPI, Reports urinary hesitancy Musculoskeletal: Reports as per HPI Musculoskeletal: right: hip pain Integumentary: Denies pruritus, Denies rash Neurological: Denies numbness, Denies weakness Psychiatric: Denies anxiety, Denies depression Endocrine: Reports weight change, Denies fatigue Hematologic/Lymphatic: Reports as per HPI, Reports thrombophilia (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) Past Medical History Past Medical History: Deep Vein Thrombosis (DVT), Hyperlipidemia, Thyroid Diso rder Additional Past Medical History / Comment(s): BPH, previous history of DVT with hypercoagulability maintained on long-term and to coagulation with warfarin, hyperlipidemia History of Any Multi-Drug Resistant Organisms: None Reported Past Surgical History: No Surgical Hx Reported Past Anesthesia/Blood Transfusion Reactions: No Reported Reaction Past Psychological History: No Psychological Hx Reported Smoking Status: Never smoker Past Alcohol Use History: Occasional Past Drug Use History: None Reported - Past Family History Father Family Medical History: Cancer (Lung cancer in the father who from complications of lung cancer), Prostate Disorder Brother(s) Family Medical History: Prostate Disorder Medications and Allergies Home Medications Medication Instructions Recorded Confirmed Type Acetaminophen [Tylenol Arthritis] 1,300 mg PO Q12H PRN 10/14/18 10/14/18 History Finasteride [Proscar] 5 mg PO DAILY 10/14/18 10/14/18 History HYDROcodone/APAP 5-325MG [[place] 1 tab PO BID PRN 10/14/18 10/14/18 History 5-325] Levothyroxine Sodium [Synthroid] 25 mcg PO DAILY 10/14/18 10/14/18 History Methocarbamol [Robaxin-750] 750 mg PO QID PRN 10/14/18 10/14/18 History Simvastatin [Zocor] 20 mg PO HS 10/14/18 10/14/18 History Tamsulosin HCl [Flomax] 0.4 mg PO DAILY 10/14/18 10/14/18 History Warfarin [Coumadin] 5 mg PO FR 10/14/18 10/14/18 History Warfarin [Coumadin] 7.5 mg PO SUMOTUWETHSA 10/14/18 10/14/18 History Allergies Allergy/AdvReac Type Severity Reaction Status Date / Time No Known Allergies Allergy Unverified 10/14/18 12:37 Physical Exam Vitals: Vital Signs Temp Pulse Resp BP Pulse Ox 10/15/18 16:15 14 10/15/18 08:05 66 14 10/15/18 07:00 98 F 66 14 114/65 96 10/15/18 01:09 98.0 F 71 14 99/52 95 Intake and Output 10/15/18 10/15/18 10/15/18 06:59 14:59 22:59 Intake Total 900 Output Total 400 Balance 900 -400 Intake: Intake, IV Titration 900 Amount Sodium Chloride 0.9% 1, 900 000 ml @ 100 mls/hr IV . Q10H [facility] Rx#:[id number] Output: Urine 400 Other: Voiding Method Urinal Urinal # Voids 3 2 - Constitutional General appearance: no acute distress - EENT Eyes: EOMI, PERRLA ENT: hearing grossly normal, normal oropharynx - Neck Neck: no lymphadenopathy Thyroid: bilateral: normal size - Respiratory Respiratory: bilateral: CTA - Cardiovascular Rhythm: regular Heart sounds: normal: S1, S2 - Gastrointestinal General gastrointestinal: normal bowel sounds, soft - Integumentary Integumentary: normal - Neurologic Neurologic: CNII-XII intact - Musculoskeletal Musculoskeletal: right sided weakness (right lower extremity due to hip pain) - Psychiatric Psychiatric: A&O x's 3, appropriate affect Results CBC & Chem 7: 10/15/18 06:40 10/15/18 06:40 Labs: Abnormal Lab Results - Last 24 Hours (Table) 10/14/18 10/14/18 10/14/18 Range/Units 21:45 22:33 22:33 ESR 28 H (0-15) mm/hr PT (9.0-12.0) sec INR (<1.2) BUN (9-20) mg/dL Calcium (8.4-10.2) mg/dL PTH Intact 7.5 L (14.0-72.0) pg/mL Urine Bacteria Rare H (None) /hpf Urine Mucus Rare H (None) /hpf 10/15/18 10/15/18 Range/Units 06:40 06:40 ESR (0-15) mm/hr PT 33.8 H (9.0-12.0) sec INR 3.5 H (<1.2) BUN 26 H (9-20) mg/dL Calcium 10.3 H (8.4-10.2) mg/dL PTH Intact (14.0-72.0) pg/mL Urine Bacteria (None) /hpf Urine Mucus (None) /hpf Comments: hip x-ray report and CT hip report reviewed Chest x-ray: report reviewed CT scan - abdomen: report reviewed CT scan - chest: report reviewed CT Scan - head: report reviewed CT scan - pelvis: report reviewed Assessment and Plan (1) Paraspinal mass Narrative/Plan: The patient's CT scan is as noted, and is highly suggestive of a metastatic malignancy. The reports and implications were discussed in detail with him. At this time the right paraspinal mass is of immediate concern, as impending cord compression cannot be ruled out. On careful examination, the patient has no neurologic deficit fortunately, with no loss of lower extremity, lower abdomen, bowel or bladder sensation The patient will be started on IV steroids and thoracic spine MRI will be ordered. Consult to be placed radiation oncology and to spinal surgery. The case was discussed with radiation oncology and spine surgery Follow patient closely for any evidence of development of neurologic deficit Current Visit: Yes Status: Acute Code(s): R22.2 - LOCALIZED SWELLING, MASS AND LUMP, TRUNK SNOMED Code(s): 383621027 (2) Bone metastases Narrative/Plan: The patient has widespread bone metastasis, with pathologic fracture in the proximal right femur, as well as T6 invasion as noted. He is symptomatic from both. - At this time an obvious primary is not determined. Based on the CT lashawn earance, a lung primary is most likely though interestingly the patient is a nonsmoker. The patient will need a tissue diagnosis. Biopsy of the right paraspinal mass will be ordered, with IR - Followed off on starting specific bone strengthening medication as the patient will need surgery on the right hip. . Current Visit: Yes Status: Acute Code(s): C79.51 - SECONDARY MALIGNANT NEOPLASM OF BONE SNOMED Code(s): 40221748 (3) Hypercalcemia Narrative/Plan: Due to malignancy, from bone metastasis and/or paraneoplastic effect of the tumor. Calcium has declined into the normal range with hydration. Hold off on starting Zometa or xgeva due to impending surgery. Current Visit: Yes Status: Acute Code(s): E83.52 - HYPERCALCEMIA SNOMED Code(s): 13819071 (4) Coagulopathy Narrative/Plan: due to Coumadin. Coumadin is on hold. The patient will be given vitamin K to reverse his INR, as he will need biopsy, as well as Surgery in the near future. Post-procedures Lovenox can be utilized for anticoagulation while inpatient Current Visit: Yes Status: Acute Code(s): D68.9 - COAGULATION DEFECT, UNSPECIFIED SNOMED Code(s): 91081842
[2018-10-16] MEDS: TEMAZEPAM 15 MG CAP PO PRN ×2 (00:12→21:51)
[2018-10-16] MEDS: SODIUM CHLORIDE 0.9% 1,000 ML IV SCH ×5 (00:12→22:51)
[2018-10-16] MEDS: DEXAMETHASONE SOD PHOSPHATE 4 MG/ML 1 ML VIAL IV SCH ×4 (00:12→17:58)
[2018-10-16] MEDS: LEVOTHYROXINE 25 MCG TAB PO SCH (06:38)
[2018-10-16] MEDS: IPRATROPIUM-ALBUTEROL 3 ML NEB INHALATION SCH ×3 (07:23→20:42)
[2018-10-16 09:26] LABS: INR 1.4 (<1.2); Partial Thromboplastin Time 24.5 sec (22.0-30.0); Prothrombin Time 14.2 sec (9.0-12.0)
[2018-10-16 09:33] LABS: African American GFR (CKD) >90 (>60 ml/min/1.73 sqM); Anion Gap 9 mmol/L; Blood Urea Nitrogen 24 mg/dL (9-20); Calcium 9.6 mg/dL (8.4-10.2); Carbon Dioxide 25 mmol/L (22-30); Chloride 104 mmol/L (98-107); Glucose 161 mg/dL (74-99); Potassium 4.1 mmol/L (3.5-5.1); Sodium 138 mmol/L (137-145)
[2018-10-16] MEDS: HYDROcodone/APAP 5-325MG 1 EACH TAB PO PRN ×2 (09:37→21:50)
[2018-10-16 09:48] LABS: Basophils % (A) 0 %; Eosinophils % (A) 0 %; HCT 46.5 % (39.0-53.0); HGB 15.7 gm/dL (13.0-17.5); Lymphocytes # (A) 0.5 k/uL (1.0-4.8); Lymphocytes % (A) 5 %; MCH 30.1 pg (25.0-35.0); MCHC 33.7 g/dL (31.0-37.0); MCV 89.3 fL (80.0-100.0); Mean Platelet Volume 6.9; Monocytes # (A) 0.2 k/uL (0-1.0); Monocytes % (A) 2 %; Neutrophils # (A) 9.4 k/uL (1.3-7.7); Neutrophils % (A) 92 %; Platelet Count 217 k/uL (150-450); RBC 5.21 m/uL (4.30-5.90); RDW 13.8 % (11.5-15.5); WBC 10.2 k/uL (3.8-10.6)
--- NOTE | 2018-10-16 13:45 | P.PN ---
Subjective Progress Note Date: 10/16/18 This is a 68-year-old male patient was having pain in his right posterior shoulder blade and right hip area. He was progressively getting worse to the point where he was unable to walk and he was moving with the help of a cane. [facility] and he was seen by Dr. Herring and the patient was found to have a pathologic fracture of the right femoral neck. The patient did not have any trauma prior to this event. He was immediately sent over to the hospital where he was subjected to further workup and he was found to have hypercalcemia with a calcium level of 12 and further evaluation with a CAT scan of the chest abdomen and pelvis showed a 5.6 x 4.7 cm mass within the posterior medial aspect of the right upper lobe and the mass was invading the thoracic vertebral body at the level of T6 and was including the spinal canal with mass effect on the thoracic segment of the spinal cord. There was another 1.5 x 1 cm noncalcified pleural-based nodule posterior lateral part of the right lower lobe. The patient was also found to have another 1.5 x 1.5 cm soft tissue nodule in the posterior medial aspect of the mid left with bony destruction and pathologic fracture. The bone scan showed metastatic disease to the skeletal system with intense uptake in the right paraspinal T6 level and T6 vertebral body in addition to multiple foci of increased uptake within the thoracic segme nt as well as L1 and bilateral lateral rib uptake and uptake in the left scapular tip and in the right femoral head and neck area. MRI of the 6 by showed a right paraspinal mass with infiltration into the T6 vertebral segment and epidurals space. Mass is less than 1 mm from the spinal cord without infiltration at this point in time. There is mild displacement of the spinal cord from [id number] without overt compression at this point in time. The patient was subjected to hydration. Calcium level improved and is down to 10.3. The patient is laying comfortably in bed. No hemoptysis. No pleurisy. Pain is under good control for now. Denies having any motor weakness in lower extremities. No urinary or stool incontinence. No numbness or tingling in lower extremities bilaterally. No motor deficits. His pain was mainly in the right hip area and he was unable to bear weight. No weight loss. No other constitutional symptoms. He has had previous history of DVT and he is told to have a underlying hypercoagulability and based on that the patient was subjected to long-term anticoagulation. On 10/16/2018 I'm seeing this patient for a follow-up. The patient was again reevaluated by orthopedic surgery and based on Dr. Herring's opinion, this surgery for right hip fracture cannot be performed in our hospital. This is a complex surgery in May need to be done by a oncologic orthopedist. For that reason he hasn't made recommendations to transfer this patient, [facility] for surgical repair of the hip. Meanwhile, we decided to proceed with a fine-needle aspirate of the paraspinal/lung mass to establish tissue diagnosis. This was done by interventional radiology. The patient otherwise doing well. He is in good spirits. He has no pain issues for now. No nausea vomiting or abdominal pain. Radiation oncology and medical oncology and orthopedic surgery are all following the case. Objective - Vital Signs Vital signs: Vital Signs Temp 98.2 F 10/16/18 11:58 Pulse 83 10/16/18 12:33 Resp 18 10/16/18 12:33 BP 121/66 10/16/18 12:33 Pulse Ox 95 10/16/18 12:33 Intake & Output 10/15/18 10/16/18 10/16/18 18:59 06:59 18:59 Output Total 400 400 Balance -400 -400 Output: Urine 400 400 Other: Voiding Method Urinal Urinal # Voids 2 3 - Exam The patient appeared well nourished and normally developed. Vital signs as documented. Head exam is unremarkable. No scleral icterus or corneal arcus note d. Neck is without jugular venous distension, thyromegaly, or carotid bruits. Carotid upstrokes are brisk bilaterally. Lungs are clear to auscultation and percussion. Cardiac exam reveals the PMI to be normally sized and situated. Rhythm is regular. First and second heart sounds normal. No murmurs, rubs or gallops. Abdominal exam reveals normal bowel sounds, no masses, no organomegaly and no aortic enlargement. Extremities are nonedematous and both femoral and pedal pulses are normal. The patient has pain in the right hip upon passive range of motion. Upon inspection the examination is benign and there is no significant deformity. Neurovascularly intact. Examination of the skin revealed no evidence of significant rashes, suspicious appearing nevi or other concerning lesions. Neurologically the patient has equal and symmetrical pulses bilaterally. No Babinski. No clonus. Gait was not assessed. Cranial nerves are intact. - Labs CBC & Chem 7: 10/16/18 08:46 10/16/18 08:46 Labs: Abnormal Lab Results - Last 24 Hours (Table) 10/16/18 10/16/18 10/16/18 Range/Units 08:46 08:46 08:46 Neutrophils # 9.4 H (1.3-7.7) k/uL Lymphocytes # 0.5 L (1.0-4.8) k/uL PT 14.2 H (9.0-12.0) sec INR 1.4 H (<1.2) BUN 24 H (9-20) mg/dL Glucose 161 H (74-99) mg/dL Assessment and Plan Plan: 1 metastatic carcinoma the patient has a 5.6 x 4.7 cm mass within the posterior medial aspect of the right upper lobe that has invaded into the vertebral body of T6 spine encroaching on the spinal canal. MRI of the spine did not show any mass effect and the mass was probably within few millimeters away from the spinal cord. Neurologically the patient does not have any motor deficits in lower extremities bilaterally. Nevertheless, the patient has extensive skeletal metastases including a pathologic fracture of the right hip, invasion of the T6 body, numerous thoracic segments involved at the level of L1 and bilateral rib uptake and left scapular tip uptake with cancer. 2 pathologic right hip fracture 3 DVT, history of and the patient has been long-term anticoagulation 4 BPH 5 hyperlipidemia 6 hypothyroidism 7 hypercalcemia secondary to above, improved Plan I had a discussion with the orthopedic surgeon. This is a complex fracture that may need to be treated by a orthopedic oncology and the recommendation was tra nsferred this patient to [facility] for surgical intervention and fixation of the right hip. Meanwhile, a tissue diagnosis will be needed. The patient is going to undergo of the lung mass today and hopefully this will establish diagnosis. The patient also had localized radiation therapy to the spinal lesion by the time further planning is being done through repair his hip fracture. We'll continue to follow. The calcium level is down to 9.6. Patient's INR level is down to 1.4. The Coumadin level will be kept on hold for now.
--- NOTE | 2018-10-16 13:49 | P.PN ---
Subjective Progress Note Date: 10/16/18 Principal diagnosis: pathologic hip fracture, metastatic disease Patient is pleasant 68 yo male seen at bedside today. He has no new complaints. He has no hip pain lying at rest. He just returned from biopsy and has no complaints. He has no new complaints. He had MRI of thoracic spine and nuclear bone scan yesterday. Objective - Vital Signs Vital signs: Vital Signs Temp 98.2 F 10/16/18 11:58 Pulse 83 10/16/18 12:33 Resp 18 10/16/18 12:33 BP 121/66 10/16/18 12:33 Pulse Ox 95 10/16/18 12:33 Intake & Output 10/15/18 10/16/18 10/16/18 18:59 06:59 18:59 Output Total 400 400 Balance -400 -400 Output: Urine 400 400 Other: Voiding Method Urinal Urinal # Voids 2 3 - Exam Inspection of right lower extremity is benign. No deformity. ROM not tested due to hip fracture. Motor and sensation grossly intact. Calf is SNT. 2+ DP pulse present. - Constitutional General appearance: Present: no acute distress - Labs CBC & Chem 7: 10/16/18 08:46 10/16/18 08:46 Labs: Abnormal Lab Results - Last 24 Hours (Table) 10/16/18 10/16/18 10/16/18 Range/Units 08:46 08:46 08:46 Neutrophils # 9.4 H (1.3-7.7) k/uL Lymphocytes # 0.5 L (1.0-4.8) k/uL PT 14.2 H (9.0-12.0) sec INR 1.4 H (<1.2) BUN 24 H (9-20) mg/dL Glucose 161 H (74-99) mg/dL Assessment and Plan (1) Closed right hip fracture Narrative/Plan: Patient appears to be stable and comfortabe. From an orthopedic standpoint in regards to his pathologic right hip fracture there continues to be no plans for surgical invention here at [facility]. Primary team has arranged possible transfer [facility] where they have an orthopedic oncologist for surgical intervention. He may be receiving radiation and further care here before transfer. We recommend continued pain management and nonweightbearing while an inpatient here at [facility]. We will sign off for now. Current Visit: Yes Status: Acute Priority: Medium Code(s): S72.001A - FRACTURE OF UNSP PART OF NECK OF RIGHT FEMUR, INIT SNOMED Code(s): 117154489 Time with Patient: Less than 30
--- NOTE | 2018-10-16 13:50 | CT ---
EXAMINATION TYPE: CT biopsy bone superficial DATE OF EXAM: 10/16/2018 COMPARISON: CT scan 10/14/2018 HISTORY: Biopsy paraspinal CT DLP: [id number] mGycm The procedure is discussed with the patient, the risks, complications, benefits and alternatives, wer e discussed and any questions were answered. Informed consent was obtained. The patient is placed p reynold on the CT table, prepped and draped in the usual sterile fashion. Utilizing a 18-gauge core biopsy needle access into the right paraspinal mass was achieved with 4 pas ses performed. Pathology pending. All elements of maximal barrier and sterile technique were utiliz ed. The patient remained stable throughout the procedure with no immediate postprocedural complicati on. IMPRESSION: 1. Successful CT guided core biopsy of a right paraspinal mass.
[2018-10-16 14:04] LABS: Gamma Globulin 2.45 g/dL (0.70-1.50)
--- NOTE | 2018-10-16 14:43 | P.PN ---
<Genia Garcia - Last Filed: 10/16/18 14:33> Subjective Progress Note Date: 10/16/18 Principal diagnosis: Impending cord compression, Paraspinal Mass Status Post Biopsy with IR, spoke with Dr. Dinh Radiation oncology and with Patient/Family. Objective - Vital Signs Vital signs: Vital Signs Temp 97.7 F 10/16/18 07:00 Pulse 80 10/16/18 07:36 Resp 12 10/16/18 07:00 BP 130/67 10/16/18 07:00 Pulse Ox 96 10/16/18 07:27 Intake & Output 10/15/18 10/16/18 10/16/18 18:59 06:59 18:59 Output Total 400 400 Balance -400 -400 Output: Urine 400 400 Other: Voiding Method Urinal Urinal # Voids 2 3 - Exam - Constitutional General appearance: no acute distress - EENT Eyes: EOMI, PERRLA ENT: hearing grossly normal, normal oropharynx - Neck Neck: no lymphadenopathy Thyroid: bilateral: normal size - Respiratory Respiratory: bilateral: CTA - Cardiovascular Rhythm: regular Heart sounds: normal: S1, S2 - Gastrointestinal General gastrointestinal: normal bowel sounds, soft - Integumentary Integumentary: normal - Neurologic Neurologic: CNII-XII intact - Musculoskeletal Musculoskeletal: right sided weakness (right lower extremity due to hip pain) - Psychiatric Psychiatric: A&O x's 3, appropriate affect - Labs CBC & Chem 7: 10/16/18 08:46 10/16/18 08:46 Labs: Abnormal Lab Results - Last 24 Hours (Table) 10/14/18 10/16/18 10/16/18 Range/Units 22:33 08:46 08:46 Neutrophils # 9.4 H (1.3-7.7) k/uL Lymphocytes # 0.5 L (1.0-4.8) k/uL PT 14.2 H (9.0-12.0) sec INR 1.4 H (<1.2) BUN (9-20) mg/dL Glucose (74-99) mg/dL PTH Intact 7.5 L (14.0-72.0) pg/mL 10/16/18 Range/Units 08:46 Neutrophils # (1.3-7.7) k/uL Lymphocytes # (1.0-4.8) k/uL PT (9.0-12.0) sec INR (<1.2) BUN 24 H (9-20) mg/dL Glucose 161 H (74-99) mg/dL PTH Intact (14.0-72.0) pg/mL Assessment and Plan Plan: hip x-ray report and CT hip report reviewed Chest x-ray: report reviewed CT scan - abdomen: report reviewed CT scan - chest: report reviewed CT Scan - head: report reviewed CT scan - pelvis: report reviewed Assessment and Plan: Paraspinal mass - Status Post Biopsy today 10.16.18, await Results - Will likely begin Radiation for impending cord compression next week after path results - Continue on Dex and PPI - At this time the right paraspinal mass is of immediate concern, as impending cord compression cannot be ruled out. On careful examination, the patient has no neurologic deficit fortunately, with no loss of lower extremity, lower abdomen, bowel or bladder sensation - The patient will be started on IV steroids and thoracic spine MRI will be ordered. Consult to be placed radiation oncology and to spinal surgery. The case was discussed with radiation oncology and spine surgery - Follow patient closely for any evidence of development of neurologic deficit - Dr. Dinh did evaluate and will await path results, unless a new immediate implication to start radiation sooner will tentatively plan for after biopsy results return, I did discuss with patients family Bone metastases with pathological Fracture Right Hip: - Will require surgical intervention although recommended to be performed with orthopedic oncology. - The patient has widespread bone metastasis, with pathologic fracture in the proximal right femur, as well as T6 invasion as noted. He is symptomatic from both. - At this time an obvious primary is not determined. - Based on the CT appearance, a lung primary is most likely though interest ingly the patient is a nonsmoker. - Followed off on starting specific bone strengthening medication as the patient will need surgery on the right hip. Hypercalcemia Due to malignancy, from bone metastasis and/or paraneoplastic effect of the tumor. - Calcium has declined into the normal range with hydration. - Hold off on starting Zometa or xgeva due to impending surgery. Coagulopathy - due to Coumadin. Coumadin is on hold. The patient will be given vitamin K to reverse his INR, as he will need biopsy, as well as Surgery in the near future. Post-procedures Lovenox can be utilized for anticoagulation while inpatient Plan: = Await path results = Continue close neurological assessment and monitoring = Continue Dex and PPI = Anticipate XRT to impending cord next week once results posted = Plan for transfer to [facility] for Orthopedic Oncologic Surgical intervention of Right pathological hip fracture. Discussed with Dr. Dinh, patient, RN and faily in detail Greater than 30 min <Daniele Anguiano - Last Filed: 10/16/18 19:34> Objective - Vital Signs Vital signs: Vital Signs Temp 98 F 10/16/18 15:21 Pulse 80 10/16/18 16:00 Resp 15 10/16/18 16:00 BP 125/68 10/16/18 15:21 Pulse Ox 96 10/16/18 15:21 Intake & Output 10/16/18 10/16/18 10/17/18 06:59 18:59 06:59 Intake Total 1250 Output Total 400 Balance -400 1250 Intake: Intake, IV Titration 850 Amount Sodium Chloride 0.9% 1, 800 000 ml @ 100 mls/hr IV . Q10H MARJ Rx#:[id number] cefTRIAXone 1 gm In 50 Sodium Chloride 0.9% 50 ml @ 100 mls/hr IVPB Q24HR MARJ Rx#:[id number] Oral 400 Output: Urine 400 Other: Voiding Method Urinal Urinal # Voids 3 4 - Labs CBC & Chem 7: 10/16/18 08:46 10/16/18 08:46 Labs: Abnormal Lab Results - Last 24 Hours (Table) 10/14/18 10/16/18 10/16/18 Range/Units 22:33 08:46 08:46 Neutrophils # 9.4 H (1.3-7.7) k/uL Lymphocytes # 0.5 L (1.0-4.8) k/uL PT 14.2 H (9.0-12.0) sec INR 1.4 H (<1.2) BUN (9-20) mg/dL Glucose (74-99) mg/dL Albumin (PEP) 3.50 L (3.80-4.90) g/dL Dwuso-6-Rshwrxwwt 0.42 H (0.10-0.40) g/dL Gamma Globulins 2.45 H (0.70-1.50) g/dL 10/16/18 Range/Units 08:46 Neutrophils # (1.3-7.7) k/uL Lymphocytes # (1.0-4.8) k/uL PT (9.0-12.0) sec INR (<1.2) BUN 24 H (9-20) mg/dL Glucose 161 H (74-99) mg/dL Albumin (PEP) (3.80-4.90) g/dL Dgeot-1-Wtbaluglb (0.10-0.40) g/dL Gamma Globulins (0.70-1.50) g/dL Assessment and Plan (1) Paraspinal mass Current Visit: Yes Status: Acute Code(s): R22.2 - LOCALIZED SWELLING, MASS AND LUMP, TRUNK SNOMED Code(s): 431720940 (2) Bone metastases Current Visit: Yes Status: Acute Code(s): C79.51 - SECONDARY MALIGNANT NEOPLASM OF BONE SNOMED Code(s): 91318159 (3) Hypercalcemia Current Visit: Yes Status: Acute Code(s): E83.52 - HYPERCALCEMIA SNOMED Code(s): 27821228 (4) Coagulopathy Current Visit: Yes Status: Acute Code(s): D68.9 - COAGULATION DEFECT, UNSPECIFIED SNOMED Code(s): 37237663 Plan: As above Pt's 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 However as clinical picture is quite uncharacteristic of myeloma, a separate primary remains a major differential. Pt s/p biopsy. Await results for pathologic dx. - Check light chains and Ig levels Pt will need to resume anticoagulation. Has h/o recurrent VTEs already, and now had met malignancy and immobility. He was reluctant to take Lovenox, and wanted Iv heparin. I discussed relative merits and convenience. He is agreeable to Lovenox. Thus the order will be changed
[2018-10-16] MEDS: TAMSULOSIN 0.4 MG CAP.ER.24H PO SCH (17:58)
[2018-10-16] MEDS: FINASTERIDE 5 MG TAB PO SCH (17:58)
[2018-10-16] MEDS ORDERED: HEPARIN SODIUM,PORCINE 5,000 UNIT/ML 1 ML VIAL IV PRN (18:45)
[2018-10-16] MEDS ORDERED: HEPARIN SOD,PORK IN 0.45% NACL 25,000 UNIT in 0.45% NACL 1 250ML.BAG IV SCH (18:45)
[2018-10-16] MEDS: ENOXAPARIN 100 MG/ML SYRINGE SQ SCH (21:51)
[2018-10-17] MEDS: DEXAMETHASONE SOD PHOSPHATE 4 MG/ML 1 ML VIAL IV SCH ×5 (01:22→23:15)
--- NOTE | 2018-10-17 02:03 | PN ---
PROGRESS NOTE DATE OF SERVICE: 10/16/2018 This 68-year-old gentleman was admitted with multiple lesions right hip, also had multiple lesions in the chest also. The patient underwent right paraspinal mass biopsy by CT-guided guidance today. No chest pain. No palpitations. No fever. Multiple consultants are following the patient closely. EXAM: Alert and oriented times three. Pulse is 80, blood pressure 128/60, respirations 12, temperature 98 degrees, pulse ox 98% on room air. HEENT: Conjunctivae normal. CARDIOVASCULAR: S1, S2 muffled. RESPIRATORY: Breath sounds diminished in the bases. No rhonchi. No crackles. LEGS status post right hip fracture. 1. NERVOUS SYSTEM: No focal deficits. LAB STUDIES: Is INR is 1.4. Sodium 130, potassium 4.1. ASSESSMENT: 1. T6 vertebral involvement with right hip fracture, possibly pathology fractures with extensive involvement of the right paraspinal mass and as well as possible metastatic lesion status post CT-guided biopsy. 2. Coumadin coagulopathy, improving. 3. Hypercalcemia, possibly malignancy. 4. Possible right lung pneumonia. 5. Hyperglobulinemia, rule out multiple myeloma. 6. History of deep vein thrombosis. 7. Hyperlipidemia. 8. History of Coumadin monitoring. 9. Hypothyroidism. 10.History of enlarged prostate. 11.Coumadin coagulopathy. RECOMMENDATIONS AND DISCUSSION: Recommend to continue current medications, management and symptomatic treatment. Otherwise, at this time I recommend symptomatic treatment. Await biopsy report. Otherwise we will closely monitor with multiple consultants. Prognosis guarded. The patient is also being evaluated to rule out the possible multiple myeloma. Further recommendations to follow. MMODL / IJN: [id number] / MTDD
[2018-10-17] MEDS: LEVOTHYROXINE 25 MCG TAB PO SCH (06:00)
[2018-10-17] MEDS: IPRATROPIUM-ALBUTEROL 3 ML NEB INHALATION SCH ×3 (07:28→21:03)
[2018-10-17 07:57] LABS: Basophils % (A) 0 %; Eosinophils # (A) 0.1 k/uL (0-0.7); Eosinophils % (A) 1 %; HCT 45.9 % (39.0-53.0); HGB 15.6 gm/dL (13.0-17.5); Lymphocytes # (A) 0.5 k/uL (1.0-4.8); Lymphocytes % (A) 3 %; MCH 30.6 pg (25.0-35.0); MCHC 33.9 g/dL (31.0-37.0); MCV 90.3 fL (80.0-100.0); Mean Platelet Volume 7.3; Monocytes # (A) 0.3 k/uL (0-1.0); Monocytes % (A) 2 %; Neutrophils # (A) 12.5 k/uL (1.3-7.7); Neutrophils % (A) 94 %; Platelet Count 221 k/uL (150-450); RBC 5.08 m/uL (4.30-5.90); WBC 13.3 k/uL (3.8-10.6)
[2018-10-17 08:09] LABS: INR 1.1 (<1.2); Prothrombin Time 11.6 sec (9.0-12.0)
[2018-10-17 08:10] LABS: African American GFR (CKD) >90 (>60 ml/min/1.73 sqM); Anion Gap 9 mmol/L; Blood Urea Nitrogen 26 mg/dL (9-20); Carbon Dioxide 25 mmol/L (22-30); Chloride 105 mmol/L (98-107); Glucose 112 mg/dL (74-99); Potassium 4.1 mmol/L (3.5-5.1); Sodium 139 mmol/L (137-145)
[2018-10-17] MEDS: ENOXAPARIN 100 MG/ML SYRINGE SQ SCH ×2 (10:08→22:01)
[2018-10-17] MEDS: SODIUM CHLORIDE 0.9% 1,000 ML IV SCH ×2 (10:09→23:16)
--- NOTE | 2018-10-17 13:55 | P.PN ---
Subjective Progress Note Date: 10/17/18 This is a 68-year-old male patient was having pain in his right posterior shoulder blade and right hip area. He was progressively getting worse to the point where he was unable to walk and he was moving with the help of a cane. [facility] and he was seen by Dr. Herring and the patient was found to have a pathologic fracture of the right femoral neck. The patient did not have any trauma prior to this event. He was immediately sent over to the hospital where he was subjected to further workup and he was found to have hypercalcemia with a calcium level of 12 and further evaluation with a CAT scan of the chest abdomen and pelvis showed a 5.6 x 4.7 cm mass within the posterior medial aspect of the right upper lobe and the mass was invading the thoracic vertebral body at the level of T6 and was including the spinal canal with mass effect on the thoracic segment of the spinal cord. There was another 1.5 x 1 cm noncalcified pleural-based nodule posterior lateral part of the right lower lobe. The patient was also found to have another 1.5 x 1.5 cm soft tissue nodule in the posterior medial aspect of the mid left with bony destruction and pathologic fracture. The bone scan showed metastatic disease to the skeletal system with intense uptake in the right paraspinal T6 level and T6 vertebral body in addition to multiple foci of increased uptake within the thoracic segme nt as well as L1 and bilateral lateral rib uptake and uptake in the left scapular tip and in the right femoral head and neck area. MRI of the 6 by showed a right paraspinal mass with infiltration into the T6 vertebral segment and epidurals space. Mass is less than 1 mm from the spinal cord without infiltration at this point in time. There is mild displacement of the spinal cord from fbbw-md-uokgj without overt compression at this point in time. The patient was subjected to hydration. Calcium level improved and is down to 10.3. The patient is laying comfortably in bed. No hemoptysis. No pleurisy. Pain is under good control for now. Denies having any motor weakness in lower extremities. No urinary or stool incontinence. No numbness or tingling in lower extremities bilaterally. No motor deficits. His pain was mainly in the right hip area and he was unable to bear weight. No weight loss. No other constitutional symptoms. He has had previous history of DVT and he is told to have a underlying hypercoagulability and based on that the patient was subjected to long-term anticoagulation. On 10/16/2018 I'm seeing this patient for a follow-up. The patient was again reevaluated by orthopedic surgery and based on Dr. Herring's opinion, this surgery for right hip fracture cannot be performed in our hospital. This is a complex surgery in May need to be done by a oncologic orthopedist. For that reason he hasn't made recommendations to transfer this patient, [facility] for surgical repair of the hip. Meanwhile, we decided to proceed with a fine-needle aspirate of the paraspinal/lung mass to establish tissue diagnosis. This was done by interventional radiology. The patient otherwise doing well. He is in good spirits. He has no pain issues for now. No nausea vomiting or abdominal pain. Radiation oncology and medical oncology and orthopedic surgery are all following the case. On 10/17/2018 the patient remains in stable condition. The patient underwent a fine-needle aspirate of the paraspinal mass. Pathology is not available is still pending for now. 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 It final diagnoses not been established yet. We'll continue to follow. Oncology is on the case. Objective - Vital Signs Vital signs: Vital Signs Temp 97.8 F 10/17/18 07:00 Pulse 80 10/17/18 12:19 Resp 16 10/17/18 07:00 BP 125/69 10/17/18 07:00 Pulse Ox 97 10/17/18 07:00 Intake & Output 10/16/18 10/17/18 10/17/18 18:59 06:59 18:59 Intake Total 1250 472 Balance 1250 472 Intake: Intake, IV Titration 850 Amount Sodium Chloride 0.9% 1, 800 000 ml @ 100 mls/hr IV . Q10H MARJ Rx#:[id number] cefTRIAXone 1 gm In 50 Sodium Chloride 0.9% 50 ml @ 100 mls/hr IVPB Q24HR MARJ Rx#:[id number] Oral 400 472 Other: Voiding Method Urinal Urinal Urinal # Voids 4 2 - Exam The patient appeared well nourished and normally developed. Vital signs as documented. Head exam is unremarkable. No scleral icterus or corneal arcus noted. Neck is without jugular venous distension, thyromegaly, or carotid bruits. Carotid upstrokes are brisk bilaterally. Lungs are clear to auscultation and percussion. Cardiac exam reveals the PMI to be normally sized and situated. Rhythm is regular. First and second heart sounds normal. No murmurs, rubs or gallops. Abdominal exam reveals normal bowel sounds, no masses, no organomegaly and no aortic enlargement. Extremities are nonedematous and both femoral and pedal pulses are normal. The patient has pain in the right hip upon passive range of motion. Upon inspection the examination is benign and there is no significant deformity. Neurovascularly intact. Examination of the skin revealed no evidence of significant rashes, suspicious appearing nevi or other concerning lesions. Neurologically the patient has equal and symmetrical pulses bilaterally. No Babinski. No clonus. Gait was not assessed. Cranial nerves are intact. - Labs CBC & Chem 7: 10/17/18 07:16 10/17/18 07:16 Labs: Abnormal Lab Results - Last 24 Hours (Table) 10/14/18 10/17/18 10/17/18 Range/Units 22:33 07:16 07:16 WBC 13.3 H (3.8-10.6) k/uL Neutrophils # 12.5 H (1.3-7.7) k/uL Lymphocytes # 0.5 L (1.0-4.8) k/uL BUN 26 H (9-20) mg/dL Glucose 112 H (74-99) mg/dL Albumin (PEP) 3.50 L (3.80-4.90) g/dL Ecrdr-4-Eimyddyyl 0.42 H (0.10-0.40) g/dL Gamma Globulins 2.45 H (0.70-1.50) g/dL Assessment and Plan Plan: 1 metastatic carcinoma the patient has a 5.6 x 4.7 cm mass within the posterior medial aspect of the right upper lobe that has invaded into the vertebral body of T6 spine encroaching on the spinal canal. MRI of the spine did not show any mass effect and the mass was probably within few millimeters away from the spinal cord. Neurologically the patient does not have any motor deficits in lower extremities bilaterally. Nevertheless, the patient has extensive skeletal metastases including a pathologic fracture of the right hip, invasion of the T6 body, numerous thoracic segments involved at the level of L1 and bilateral rib uptake and left scapular tip uptake with cancer. The patient underwent a fine- needle aspirate of the paraspinal mass. Pathology still pending for now. 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 Awaiting final FNA results from the fine- needle aspirate of the paraspinal mass. Awaiting oncology evaluation. Conditio n is stable for now. We'll continue to follow.
[2018-10-17] MEDS: FINASTERIDE 5 MG TAB PO SCH (17:48)
[2018-10-17] MEDS: TAMSULOSIN 0.4 MG CAP.ER.24H PO SCH (17:48)
--- NOTE | 2018-10-17 19:25 | PN ---
PROGRESS NOTE DATE OF SERVICE: 10/17/2018. This 68-year-old gentleman was admitted with a T6 vertebral involvement paraspinal mass lesion also had right hip pathological fracture. A CT-guided biopsy has been done from the paraspinal mass. The final reports are pending at this time. Orthopedic surgery recommending Orthopedic Oncology evaluation at [facility], the patient being closely monitored here at this time. No chest pain. No palpitations. No fever. EXAM: Alert and oriented times three. Pulse is 72. Blood pressure is 125/60, respirations 16, temperature 97.8, pulse ox 97% on room air. HEENT: Conjunctivae normal. NECK: No jugular venous distention. CARDIOVASCULAR: S1, S2 muffled. RESPIRATION: Breath sounds diminished in the bases. No rhonchi. No crackles. ABDOMEN is soft, nontender. No mass palpable. LEGS status post right hip fracture. NERVOUS SYSTEM: No focal deficits. LABS: At this time shows WBC 13.2, hemoglobin is 15.6. INR is 1.1. Other labs are noted. ASSESSMENT: 1. T6 vertebral involvement with right hip fracture with possible pathological fracture with extensive involvement of the right paraspinal area with mass with possible metastatic lesions status post CT-guided biopsy. 2. Coumadin coagulopathy, improving. 3. Hypercalcemia, possibly malignancy. 4. Rule out multiple myeloma. 5. Possible right lung pneumonia. 6. Hyperglobulinemia; rule out multiple myeloma. 7. History of deep vein thrombosis. 8. Hyperlipidemia. 9. History of Coumadin monitoring. 10.Hypothyroidism. 11.History of enlarged prostate. 12.Coumadin coagulopathy. RECOMMENDATIONS AND DISCUSSION: Recommend to continue current medications, continue to current treatment. Continue monitoring. Symptomatic treatment. Closely follow with multiple consultants. Await biopsy report. Guarded prognosis. Further recommendations to follow. Guarded prognosis. See orders for details. Further recommendations to follow. We will also discuss with [facility] discuss with orthopedic surgery to have contact with Orthopedic/Oncology. Further recommendations to follow. MMODL / IJN: [id number] / MTDD
[2018-10-17] MEDS: TEMAZEPAM 15 MG CAP PO PRN (22:01)
[2018-10-18] MEDS: LEVOTHYROXINE 25 MCG TAB PO SCH (06:08)
[2018-10-18] MEDS: DEXAMETHASONE SOD PHOSPHATE 4 MG/ML 1 ML VIAL IV SCH ×3 (06:08→17:55)
[2018-10-18 08:14] LABS: Basophils % (A) 0 %; Eosinophils # (A) 0.1 k/uL (0-0.7); Eosinophils % (A) 1 %; HCT 44.8 % (39.0-53.0); HGB 14.8 gm/dL (13.0-17.5); Lymphocytes # (A) 0.4 k/uL (1.0-4.8); Lymphocytes % (A) 4 %; MCH 29.7 pg (25.0-35.0); MCHC 32.9 g/dL (31.0-37.0); MCV 90.3 fL (80.0-100.0); Mean Platelet Volume 7.5; Monocytes # (A) 0.4 k/uL (0-1.0); Monocytes % (A) 3 %; Neutrophils # (A) 10.9 k/uL (1.3-7.7); Neutrophils % (A) 92 %; Platelet Count 194 k/uL (150-450); RBC 4.97 m/uL (4.30-5.90); RDW 15.2 % (11.5-15.5); WBC 11.9 k/uL (3.8-10.6)
[2018-10-18] MEDS: ENOXAPARIN 100 MG/ML SYRINGE SQ SCH ×2 (08:45→20:07)
[2018-10-18] MEDS: SODIUM CHLORIDE 0.9% 1,000 ML IV SCH ×3 (08:47→21:56)
[2018-10-18] MEDS: IPRATROPIUM-ALBUTEROL 3 ML NEB INHALATION SCH ×3 (09:13→20:48)
[2018-10-18] MEDS: FINASTERIDE 5 MG TAB PO SCH (17:56)
[2018-10-18] MEDS: TAMSULOSIN 0.4 MG CAP.ER.24H PO SCH (17:56)
--- NOTE | 2018-10-18 19:56 | PN ---
PROGRESS NOTE DATE OF SERVICE: 10/18/2018 This 68-year-old gentleman was admitted with T6 vertebral involvement with right paraspinal mass lesion as well as right hip fracture, possibly pathological. He is being closely monitored. The patient underwent a CT-guided biopsy of the paraspinal mass, final reports pending at this time. Orthopedics has recommended Orthopedic Oncology referral at [facility]. The patient is being closely monitored. No chest pain. No palpitations. The patient is on Lovenox subcu at this time. The final biopsies are pending. EXAM: Alert and oriented x3. Pulse is 73, blood pressure 130/60, respirations 17, temperature 98.2, pulse ox 94% on room air HEENT: Conjunctivae normal. Oral mucosa moist. NECK: No jugular venous distention. No lymph node enlargement. CARDIOVASCULAR: S1, S2. RESPIRATORY: Diminished breath sounds at the bases. No rhonchi, no crackles. ABDOMEN: Soft, nontender. No mass palpable. LEGS: No edema, no swelling. Right leg is painful. NERVOUS SYSTEM: No focal deficits. LABS: WBC 7.2, hemoglobin 14.8. ASSESSMENT: 1. Right hip pathological fracture with severe pain and gait dysfunction. 2. Extensive T6 vertebral involvement as well as right paraspinal mass with metastatic lesions possibly status post CT-guided biopsy. 3. Coumadin coagulopathy, improved. 4. On Lovenox subcu currently. 5. Hypercalcemia, possibly malignancy. 6. Rule out multiple myeloma. 7. Possible right lung pneumonia. 8. Hyperglobulinemia. 9. History of deep venous thrombosis. 10.Hyperlipidemia. 11.History of Coumadin monitoring. 12.Hypothyroidism. 13.History of enlarged prostate. RECOMMENDATIONS AND DISCUSSION: Recommend to continue current management, continue symptomatic treatment. We are awaiting biopsy evaluations ongoing to rule out the possibility of multiple myeloma as well. Otherwise, prognosis guarded. Closely follow with multiple consultants and the plan will be once the patient is stabilized, transfer to [facility] for Orthopedic Oncology evaluation. Orthopedics will contact Orthopedic Oncology for okay to transfer. sales effectiveness manager to coordinate. Further recommendations to follow. MMODL / IJN: [id number] /
[2018-10-18] MEDS: TEMAZEPAM 15 MG CAP PO PRN (21:56)
[2018-10-19] MEDS: DEXAMETHASONE SOD PHOSPHATE 4 MG/ML 1 ML VIAL IV SCH ×4 (00:06→19:13)
[2018-10-19] MEDS: SODIUM CHLORIDE 0.9% 1,000 ML IV SCH ×2 (00:06→23:03)
[2018-10-19] MEDS: LEVOTHYROXINE 25 MCG TAB PO SCH (05:27)
[2018-10-19] MEDS: HYDROcodone/APAP 5-325MG 1 EACH TAB PO PRN (06:54)
[2018-10-19 07:22] LABS: Basophils % (A) 0 %; Eosinophils % (A) 0 %; HCT 44.9 % (39.0-53.0); Lymphocytes # (A) 0.5 k/uL (1.0-4.8); Lymphocytes % (A) 5 %; MCH 30.1 pg (25.0-35.0); MCHC 33.5 g/dL (31.0-37.0); MCV 89.8 fL (80.0-100.0); Mean Platelet Volume 6.9; Monocytes # (A) 0.4 k/uL (0-1.0); Monocytes % (A) 5 %; Neutrophils # (A) 7.6 k/uL (1.3-7.7); Neutrophils % (A) 88 %; Platelet Count 178 k/uL (150-450); WBC 8.6 k/uL (3.8-10.6)
[2018-10-19 08:32] LABS: Immunoglobulin A 96.5 mg/dL (60.0-350.0)
[2018-10-19] MEDS: IPRATROPIUM-ALBUTEROL 3 ML NEB INHALATION SCH ×3 (09:11→19:55)
--- NOTE | 2018-10-19 10:05 | P.PN ---
Subjective Progress Note Date: 10/19/18 Principal diagnosis: pathologic hip fracture, metastatic disease Patient is pleasant 68 yo male seen at bedside today. He has no new complaints. He has no hip pain lying at rest. He is awaiting biopsy results and transfer to [facility]. He denies fever, chills, chest pain, SOB, numbness. tingling or other. Objective - Vital Signs Vital signs: Vital Signs Temp 98.3 F 10/18/18 20:18 Pulse 70 10/19/18 09:11 Resp 16 10/19/18 00:05 BP 116/68 10/18/18 20:18 Pulse Ox 95 10/18/18 15:00 Intake & Output 10/18/18 10/19/18 10/19/18 18:59 06:59 18:59 Intake Total 472 Balance 472 Intake: Oral 472 Other: Voiding Method Urinal Urinal # Voids 3 1 - Exam Inspection of right lower extremity is benign. No deformity. ROM not tested due to hip fracture. Motor and sensation grossly intact. Calf is SNT. 2+ DP pulse present. - Constitutional General appearance: Present: no acute distress - Labs CBC & Chem 7: 10/19/18 06:40 10/17/18 07:16 Labs: Abnormal Lab Results - Last 24 Hours (Table) 10/17/18 10/17/18 10/19/18 Range/Units 07:16 07:16 06:40 Lymphocytes # 0.5 L (1.0-4.8) k/uL IgG 2510.0 H (700.0-1600.0) mg/dL IgM 27.0 L (40.0-280.0) mg/dL Free Lambda LC, Quant 6.76 H (0.57-2.63) mg/dL Assessment and Plan (1) Closed right hip fracture Narrative/Plan: Patient appears to be stable and comfortabe. From an orthopedic standpoint in regards to his pathologic right hip fracture and thoracic mass, there continues to be no plans for surgical invention here at [facility]. Currently awaiting biopsy results. He may transfer to [facility] where they have an orthopedic oncologist for surgical intervention when ok with primary team. We recommend continued pain management and nonweightbearing while an inpatient here at [facility]. Current Visit: Yes Status: Acute Priority: Medium Code(s): S72.001A - FRACTURE OF UNSP PART OF NECK OF RIGHT FEMUR, INIT SNOMED Code(s): 388444433 Time with Patient: Less than 30
[2018-10-19] MEDS: ENOXAPARIN 100 MG/ML SYRINGE SQ SCH ×3 (11:20→23:04)
--- NOTE | 2018-10-19 12:20 | P.PN ---
Subjective Progress Note Date: 10/19/18 Principal diagnosis: Metastatic carcinoma, with a paraspinal mass and widespread bony metastasis, and pathologic fracture of the right hip This is a 68-year-old male patient was having pain in his right posterior shoulder blade and right hip area. He was progressively getting worse to the point where he was unable to walk and he was moving with the help of a cane. [facility] and he was seen by Dr. Herring and the patient was found to have a pathologic fracture of the right femoral neck. The patient did not have any trauma prior to this event. He was immediately sent over to the hospital where he was subjected to further workup and he was found to have hypercalcemia with a calcium level of 12 and further evaluation with a CAT scan of the chest abdomen and pelvis showed a 5.6 x 4.7 cm mass within the posterior medial aspect of the right upper lobe and the mass was invading the thoracic vertebral body at the level of T6 and was including the spinal canal with mass effect on the thoracic segment of the spinal cord. There was another 1.5 x 1 cm noncalcified pleural-based nodule posterior lateral part of the right lower lobe. The patient was also found to have another 1.5 x 1.5 cm soft tissue nodule in the posterior medial aspect of the mid left with bony destruction and pathologic fracture. The bone scan showed metastatic disease to the skeletal system with intense uptake in the right paraspinal T6 level and T6 vertebral body in addition to multiple foci of increased uptake within the thoracic segment as well as L1 and bilateral lateral rib uptake and uptake in the left scapular tip and in the right femoral head and neck area. MRI of the 6 by showed a right paraspinal mass with infiltration into the T6 vertebral segment and epidurals space. Mass is less than 1 mm from the spinal cord without infiltration at this point in time. There is mild displacement of the spinal cord from [id number] without overt compression at this point in time. The patient was subjected to hydration. Calcium level improved and is down to 10.3. The patient is laying comfortably in bed. No hemoptysis. No pleurisy. Pain is under good control for now. Denies having any motor weakness in lower extremities. No urinary or stool incontinence. No numbness or tingling in lower extremities bilaterally. No motor deficits. His pain was mainly in the right hip area and he was unable to bear weight. No weight loss. No other constitutional symptoms. He has had previous history of DVT and he is told to have a underlying hypercoagulability and based on that the patient was subjected to long-term anticoagulation. On 10/16/2018 I'm seeing this patient for a follow-up. The patient was again reevaluated by orthopedic surgery and based on Dr. Herring's opinion, this surgery for right hip fracture cannot be performed in our hospital. This is a complex surgery in May need to be done by a oncologic orthopedist. For that reason he hasn't made recommendations to transfer this patient, [facility] for surgical repair of the hip. Meanwhile, we decided to proceed with a fine-needle aspirate of the paraspinal/lung mass to establish tissue diagnosis. This was done by interventional radiology. The patient otherwise doing well. He is in good spirits. He has no pain issues for now. No nausea vomiting or abdominal pain. Radiation oncology and medical oncology and orthopedic surgery are all following the case. On 10/17/2018 the patient remains in stable condition. The patient underwent a fine-needle aspirate of the paraspinal mass. Pathology is not available is still pending for now. 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 It final diagnoses not been established yet. We'll continue to follow. Oncology is on the case. On 10/19/2018 patient seen in follow-up in medical surgical floor. Denies any acute complaints, denies any shortness of breath, room air pulse ox is 94%, he is afebrile, hemodynamically stable, patient underwent a fine-needle aspirate of the paraspinal mass, and biopsy results are still pending. Today's labs have been reviewed, white blood cell count is 8.6, hemoglobin is 15. Patient has been on bedrest, denies any hip pain, denies any fever, chills, denies any chest pain, shortness of breath, denies any numbness or tingling. No loss of bowel or bladder control. Transfer is pending to [facility] today for evaluation by orthopedic oncologist Objective - Vital Signs Vital signs: Vital Signs Temp 97.8 F 10/19/18 08:15 Pulse 70 10/19/18 09:20 Resp 16 10/19/18 08:15 BP 128/72 10/19/18 08:15 Pulse Ox 94 L 10/19/18 08:15 Intake & Output 10/18/18 10/19/18 10/19/18 18:59 06:59 18:59 Intake Total 472 Balance 472 Intake: Oral 472 Other: Voiding Method Urinal Urinal # Voids 3 1 - Exam GENERAL EXAM: Alert, oriented 3, pleasant 68-year-old white male comfortable in no apparent distress. HEAD: Normocephalic/atraumatic. EYES: Normal reaction of pupils, equal size. Conjunctiva pink, sclera white. NOSE: Clear with pink turbinates. THROAT: No erythema or exudates. NECK: No masses, no JVD, no thyroid enlargement, no adenopathy. CHEST: No chest wall deformity. Symmetrical expansion. LUNGS: Equal air entry with no crackles, wheeze, rhonchi or dullness. CVS: Regular rate and rhythm, normal S1 and S2, no gallops, no murmurs, no rubs ABDOMEN: Soft, nontender. No hepatosplenomegaly, normal bowel sounds, no guarding or rigidity. EXTREMITIES: No clubbing, no edema, no cyanosis, 2+ pulses and upper and lower extremities. MUSCULOSKELETAL: Muscle strength and tone normal. SPINE: No scoliosis or deformity SKIN: No rashes CENTRAL NERVOUS SYSTEM: Alert and oriented -3. No focal deficits, tone is normal in all 4 extremities. PSYCHIATRIC: Alert and oriented -3. Appropriate affect. Intact judgment and insight. - Labs CBC & Chem 7: 10/19/18 06:40 10/17/18 07:16 Labs: Abnormal Lab Results - Last 24 Hours (Table) 10/17/18 10/17/18 10/19/18 Range/Units 07:16 07:16 06:40 Lymphocytes # 0.5 L (1.0-4.8) k/uL IgG 2510.0 H (700.0-1600.0) mg/dL IgM 27.0 L (40.0-280.0) mg/dL Free Lambda LC, Quant 6.76 H (0.57-2.63) mg/dL Assessment and Plan Plan: Assessment: 1 metastatic carcinoma the patient has a 5.6 x 4.7 cm mass within the posterior medial aspect of the right upper lobe that has invaded into the vertebral body of T6 spine encroaching on the spinal canal. MRI of the spine did not show any mass effect and the mass was probably within few millimeters away from the spinal cord. Neurologically the patient does not have any motor deficits in lower extremities bilaterally. Nevertheless, the patient has extensive skeletal metastases including a pathologic fracture of the right hip, invasion of the T6 body, numerous thoracic segments involved at the level of L1 and bilateral rib uptake and left scapular tip uptake with cancer. The patient underwent a fine- needle aspirate of the paraspinal mass. Pathology still pending for now. 2 pathologic right hip fracture 3 DVT, history of and the patient has been long-term anticoagulation 4 BPH 5 hyperlipidemia 6 hypothyroidism 7 hypercalcemia secondary to above, improved 8 abnormal serum protein electrophoresis with paraproteinemia Plan: Biopsy results of the fine-needle aspirate of the paraspinal mass are still pending. Patient is without any specific complaints. No evidence of any neurologic deficits, or sensory deficits. No complaints or shortness of breath or chest pain, no complaints of pain. Continue encouraging deep breathing and coughing, and incentive spirometry use. Breathing seems to be stable. Awaiting transfer to [facility] for evaluation by orthopedic oncologist. I performed a history & physical examination of the patient and discussed their management with my nurse practitioner, Leatha Coronado. I reviewed the nurse practitioner's note and agree with the documented findings and plan of care. Lung sounds are positive for clear. The findings and the impression was discussed with the patient. I attest to the documentation by the nurse practitioner. Time with Patient: Less than 30
--- NOTE | 2018-10-19 16:04 | PN ---
PROGRESS NOTE DATE OF SERVICE: 10/19/2018. This 68-year-old gentleman who was admitted with right hip pathological fracture and extensive lesion of the T6 with vertebral involvement and possible paraspinal lesion is being closely monitored. Biopsies are pending at this time. Dr. Dinh and Orthopedics recommended orthopedic oncology; however, orthopedic oncology in [facility] is apparently not available for the next week or so, so Dr. Dinh is contacting Orthopedic Surgery for making some alternative arrangements. No chest pain. No palpitations. No fever. PHYSICAL EXAMINATION: Alert and oriented x3. Pulse is 70, blood pressure 128/72, respirations 16, temperature 97.8, pulse ox 94% on room air. HEENT: Conjunctivae normal. NECK: No jugular venous distention. CARDIOVASCULAR SYSTEM: S1, S2 muffled. RESPIRATORY SYSTEM: Breath sounds diminished at the bases. No rhonchi. No crackles. ABDOMEN: Soft, non-tender. LEGS: Right hip is painful. NERVOUS SYSTEM: No focal deficit. LABS: WBC 8.6, hemoglobin 15. IgG is 2510 and IgM is 27, which is low. Lambda light chain is 6.76. ASSESSMENT: 1. Right hip pathologic fracture with severe pain and gait dysfunction. 2. Extensive T6 vertebral involvement as well as right paraspinal mass with metastatic lesion possibly, status post CT-guided biopsy. 3. Coumadin coagulopathy, improved. 4. Lovenox subcutaneously currently. 5. Hypercalcemia; possibly malignancy. 6. Rule out multiple myeloma, IgG, hyperglobulinemia as well as high free lambda light chains. 7. Possible right lung pneumonia. 8. Hyperglycemia. 9. History of deep vein thrombosis. 10.Hyperlipidemia. 11.History of Coumadin monitoring. 12.Hypothyroidism. 13.History of enlarged prostate. RECOMMENDATIONS AND DISCUSSION: I recommend to continue current medications, continue with the monitoring, symptomatic treatment. I discussed with multiple consultants, including Dr. Pa Dinh from Radiation Oncology. We will continue to monitor. Otherwise, I would recommend continuing with the current medications. Once orthopedic oncology is available, the patient will be transferred to [facility] for further evaluation and treatment. The original biopsies are pending at this time. MMODL / IJN: [id number] /
[2018-10-19] MEDS: FINASTERIDE 5 MG TAB PO SCH (19:13)
[2018-10-19] MEDS: TAMSULOSIN 0.4 MG CAP.ER.24H PO SCH (19:13)
--- NOTE | 2018-10-19 22:28 | DS ---
DISCHARGE SUMMARY DATE OF SERVICE: 10/19/2018. FINAL DIAGNOSES: 1. Right hip pathological fracture with severe pain and gait dysfunction. 2. Extensive T6 vertebral involvement as well as right paraspinal mass with metastatic lesions possibly status post CT-guided biopsy. 3. Coumadin coagulopathy, improved. 4. Currently on Lovenox. 5. Hypercalcemia, possibly malignancy. 6. Rule out mild multiple myeloma. 7. Possible right lung pneumonia. 8. Hyperglobulinemia. 9. History of deep vein thrombosis. 10.Hyperlipidemia. 11.History of Coumadin monitoring. 12.Hypothyroidism. 13.History of enlarged prostate. DISCHARGE DISPOSITION: The patient being discharged in a stable condition. Guarded prognosis. The patient being transferred to [facility] for orthopedic oncology evaluation per Radiation Oncology and Orthopedic surgery recommendations. Talked to Dr. Reinoso polymerization oven operator and the patient is accepted. Total time taken 35 minutes. HISTORY OF PRESENT ILLNESS: This 68-year-old gentleman with a past medical history of no significant medical history was admitted with a pathological fracture on the right hip. Evaluation showed significant involvement of the T6 vertebra and as well as paraspinal lesion which was biopsied. The patient also had high albumin. The hematology/oncology also performed evaluations to rule out the possibility of multiple myeloma, but however, final biopsy of the tissues awaited. Orthopedic surgery saw the patient and Dr. Wilfrido Dinh from Radiation Oncology saw the patient and recommended orthopedic oncology evaluation at [facility]. The patient will be transferred there. The possibility of biopsy during the surgery for the hip is also being contemplated. On exam. Vitals signs stable. Cardiovascular: S1, S2 muffled. Abdomen soft. Nervous system: No focal deficits. LEGS: Pain and swelling present. CURRENT MEDICATIONS: Reviewed and so they include: 1. Decadron 6 mg IV q.6. 2. Lovenox 90 mg subcu b.i.d. 3. Proscar 5 mg with supper. 4. Dilaudid 0.5 mg q.6 p.r.n. 5. Synthroid 25 mcg p.o. daily. 6. Robaxin 750 mg p.o. q.i.d. 7. IV at 100 mL/hour at 0.9. 8. Flomax 0.15 with supper. 9. Restoril 50 mg q.h.s. p.r.n. 10.Tylenol 1000 mg q.6h p.r.n. 11.Hutchinson 5 mg b.i.d. p.r.n. 12.DuoNeb t.i.d. and p.r.n. 13.Xanax 0.5 t.i.d. p.r.n. 14.Rocephin 1 g IV daily. Once again, the patient will be discharged in stable condition with guarded prognosis. MMODL / IJN: [id number] /
[2018-10-20] MEDS: TEMAZEPAM 15 MG CAP PO PRN (00:11)
[2018-10-20] MEDS: DEXAMETHASONE SOD PHOSPHATE 4 MG/ML 1 ML VIAL IV SCH ×4 (00:11→18:00)
[2018-10-20] MEDS: LEVOTHYROXINE 25 MCG TAB PO SCH (05:44)
[2018-10-20] MEDS: IPRATROPIUM-ALBUTEROL 3 ML NEB INHALATION SCH ×3 (07:14→19:38)
[2018-10-20] MEDS: SODIUM CHLORIDE 0.9% 1,000 ML IV SCH ×2 (07:51→16:45)
[2018-10-20] MEDS: ENOXAPARIN 100 MG/ML SYRINGE SQ SCH ×2 (09:52→22:25)
--- NOTE | 2018-10-20 12:22 | P.PN ---
Subjective Progress Note Date: 10/20/18 Principal diagnosis: Metastatic carcinoma, with a paraspinal mass and widespread bony metastasis, and pathologic fracture of the right hip This is a 68-year-old male patient was having pain in his right posterior shoulder blade and right hip area. He was progressively getting worse to the point where he was unable to walk and he was moving with the help of a cane. [facility] and he was seen by Dr. Herring and the patient was found to have a pathologic fracture of the right femoral neck. The patient did not have any trauma prior to this event. He was immediately sent over to the hospital where he was subjected to further workup and he was found to have hypercalcemia with a calcium level of 12 and further evaluation with a CAT scan of the chest abdomen and pelvis showed a 5.6 x 4.7 cm mass within the posterior medial aspect of the right upper lobe and the mass was invading the thoracic vertebral body at the level of T6 and was including the spinal canal with mass effect on the thoracic segment of the spinal cord. There was another 1.5 x 1 cm noncalcified pleural-based nodule posterior lateral part of the right lower lobe. The patient was also found to have another 1.5 x 1.5 cm soft tissue nodule in the posterior medial aspect of the mid left with bony destruction and pathologic fracture. The bone scan showed metastatic disease to the skeletal system with intense uptake in the right paraspinal T6 level and T6 vertebral body in addition to multiple foci of increased uptake within the thoracic segment as well as L1 and bilateral lateral rib uptake and uptake in the left scapular tip and in the right femoral head and neck area. MRI of the 6 by showed a right paraspinal mass with infiltration into the T6 vertebral segment and epidurals space. Mass is less than 1 mm from the spinal cord without infiltration at this point in time. There is mild displacement of the spinal cord from [id number] without overt compression at this point in time. The patient was subjected to hydration. Calcium level improved and is down to 10.3. The patient is laying comfortably in bed. No hemoptysis. No pleurisy. Pain is under good control for now. Denies having any motor weakness in lower extremities. No urinary or stool incontinence. No numbness or tingling in lower extremities bilaterally. No motor deficits. His pain was mainly in the right hip area and he was unable to bear weight. No weight loss. No other constitutional symptoms. He has had previous history of DVT and he is told to have a underlying hypercoagulability and based on that the patient was subjected to long-term anticoagulation. On 10/16/2018 I'm seeing this patient for a follow-up. The patient was again reevaluated by orthopedic surgery and based on Dr. Herring's opinion, this surgery for right hip fracture cannot be performed in our hospital. This is a complex surgery in May need to be done by a oncologic orthopedist. For that reason he hasn't made recommendations to transfer this patient, [facility] for surgical repair of the hip. Meanwhile, we decided to proceed with a fine-needle aspirate of the paraspinal/lung mass to establish tissue diagnosis. This was done by interventional radiology. The patient otherwise doing well. He is in good spirits. He has no pain issues for now. No nausea vomiting or abdominal pain. Radiation oncology and medical oncology and orthopedic surgery are all following the case. On 10/17/2018 the patient remains in stable condition. The patient underwent a fine-needle aspirate of the paraspinal mass. Pathology is not available is still pending for now. 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 It final diagnoses not been established yet. We'll continue to follow. Oncology is on the case. On 10/19/2018 patient seen in follow-up in medical surgical floor. Denies any acute complaints, denies any shortness of breath, room air pulse ox is 94%, he is afebrile, hemodynamically stable, patient underwent a fine-needle aspirate of the paraspinal mass, and biopsy results are still pending. Today's labs have been reviewed, white blood cell count is 8.6, hemoglobin is 15. Patient has been on bedrest, denies any hip pain, denies any fever, chills, denies any chest pain, shortness of breath, denies any numbness or tingling. No loss of bowel or bladder control. Transfer is pending to [facility] today for evaluation by orthopedic oncologist On 10/20/2018 patient seen in follow-up on medical surgical floor. He remains on bedrest, he is nonweightbearing on the right leg. Still awaiting transfer to a tertiary care facility, and the orthopedic oncologist at [facility] is apparently on vacation and out of the country at this time. Awaiting further input on possible transfer to another tertiary care facility if orthopedic oncology service is available possibly a [facility] or [facility]. Currently patient remains stable, he denies any specific complaints, no complaint of chest pain, shortness of breath, vital signs are stable. Patient is in good spirits, although becoming slightly teary-eyed. No fever or chills. Room air pulse ox is 96%, vital signs are stable, lung sounds are clear, patient is working on his incentive spirometer, he is achieving 2000 mL on the today. No neurologic deficits, no numbness or tingling in lower extremities, no loss of bowel or bladder control. We'll speak to the attending and oncology to see if there is any further development on placement for orthopedic oncology evaluation. Objective - Vital Signs Vital signs: Vital Signs Temp 97.5 F L 10/20/18 07:04 Pulse 72 10/20/18 11:20 Resp 18 10/20/18 07:14 BP 146/85 10/20/18 07:04 Pulse Ox 96 10/20/18 07:14 Intake & Output 10/19/18 10/20/18 10/20/18 18:59 06:59 18:59 Intake Total 1150 800 240 Output Total 1800 500 Balance -650 300 240 Intake: Intake, IV Titration 650 800 Amount Sodium Chloride 0.9% 1, 650 800 000 ml @ 100 mls/hr IV . Q10H MARJ Rx#:[id number] Oral 500 240 Output: Urine 1800 500 Other: Voiding Method Urinal Urinal # Voids 5 3 - Exam GENERAL EXAM: Alert, oriented 3, pleasant 68-year-old white male comfortable in no apparent distress. HEAD: Normocephalic/atraumatic. EYES: Normal reaction of pupils, equal size. Conjunctiva pink, sclera white. NOSE: Clear with pink turbinates. THROAT: No erythema or exudates. NECK: No masses, no JVD, no thyroid enlargement, no adenopathy. CHEST: No chest wall deformity. Symmetrical expansion. LUNGS: Equal air entry with no crackles, wheeze, rhonchi or dullness. CVS: Regular rate and rhythm, normal S1 and S2, no gallops, no murmurs, no rubs ABDOMEN: Soft, nontender. No hepatosplenomegaly, normal bowel sounds, no guarding or rigidity. EXTREMITIES: No clubbing, no edema, no cyanosis, 2+ pulses and upper and lower extremities. MUSCULOSKELETAL: Muscle strength and tone normal. SPINE: No scoliosis or deformity SKIN: No rashes CENTRAL NERVOUS SYSTEM: Alert and oriented -3. No focal deficits, tone is normal in all 4 extremities. PSYCHIATRIC: Alert and oriented -3. Appropriate affect. Intact judgment and insight. - Labs CBC & Chem 7: 10/19/18 06:40 10/17/18 07:16 Assessment and Plan Plan: Assessment: 1 metastatic carcinoma the patient has a 5.6 x 4.7 cm mass within the posterior medial aspect of the right upper lobe that has invaded into the vertebral body of T6 spine encroaching on the spinal canal. MRI of the spine did not show any mass effect and the mass was probably within few millimeters away from the spinal cord. Neurologically the patient does not have any motor deficits in lower extremities bilaterally. Nevertheless, the patient has extensive skeletal metastases including a pathologic fracture of the right hip, invasion of the T6 body, numerous thoracic segments involved at the level of L1 and bilateral rib uptake and left scapular tip uptake with cancer. The patient underwent a fine- needle aspirate of the paraspinal mass. Pathology still pending for now. 2 pathologic right hip fracture 3 DVT, history of and the patient has been long-term anticoagulation 4 BPH 5 hyperlipidemia 6 hypothyroidism 7 hypercalcemia secondary to above, improved 8 abnormal serum protein electrophoresis with paraproteinemia Plan: Continue encouraging deep breathing and coughing, incentive spirometry use, patient remains without specific complaints. No evidence of neurologic deficits. Still awaiting input on transfer for orthopedic oncology evaluation, Alexandr Christianson specialist is not available at this time, possibility of transfer to [place] or [facility] if there is a orthopedic outside event sales specialist available there, exists. Continue GI and DVT prophylaxis, fine- needle biopsy results are still pending at this time, his lab work has been reviewed, and is relatively unremarkable. No complaints of chest pain, no dyspnea, no hip pain, patient remains on bed rest, nonweightbearing. I performed a history & physical examination of the patient and discussed their management with my nurse practitioner, Leatha Coronado. I reviewed the nurse practitioner's note and agree with the documented findings and plan of care. Lung sounds are positive for clear. The findings and the impression was discussed with the patient. I attest to the documentation by the nurse practitioner. Time with Patient: Less than 30
[2018-10-20 14:02] VITALS: BMI 24.3
[2018-10-20] MEDS: TAMSULOSIN 0.4 MG CAP.ER.24H PO SCH (17:33)
[2018-10-20] MEDS: FINASTERIDE 5 MG TAB PO SCH (17:33)
[2018-10-20] MEDS: HYDROcodone/APAP 5-325MG 1 EACH TAB PO PRN (22:26)
[2018-10-21] MEDS: DEXAMETHASONE SOD PHOSPHATE 4 MG/ML 1 ML VIAL IV SCH ×4 (00:02→17:00)
[2018-10-21] MEDS: TEMAZEPAM 15 MG CAP PO PRN (00:02)
[2018-10-21] MEDS: SODIUM CHLORIDE 0.9% 1,000 ML IV SCH ×2 (03:30→16:20)
--- NOTE | 2018-10-21 05:13 | PN ---
PROGRESS NOTE DATE OF SERVICE: 10/20/2018 This 68-year-old gentleman who was admitted with right hip pathologic fracture with severe pain and gait dysfunction is being closely monitored at this time. The patient also had paraspinal lesion which was biopsied and also a T6 lesion also with some spinal canal involvement. The patient is awaiting biopsy. However, regarding definitely fixation of the fracture, I have contacted the [facility] and the medical team was willing to take over the patient, but currently there are no beds at this time. No chest pain or palpitation. No fever. PHYSICAL EXAMINATION: On exam, alert and oriented x3. The pulse is 79, blood pressure 125/67, respirations 16, temperature 98.7, pulse ox 93% on room air. HEENT: Conjunctivae normal. NECK: No jugular venous distention. CARDIOVASCULAR: S1, S2 muffled. RESPIRATION: Breath sounds diminished in the bases. No rhonchi, no crackles ABDOMEN: Soft, nontender. LEGS: Status post right hip fracture. NERVOUS SYSTEM: No focal deficits. LABS: WBC 8.6, hemoglobin 15. IgG noted. ASSESSMENT: 1. Acute right hip pathological fracture with severe pain and gait dysfunction. 2. Extensive T6 vertebral involvement as well as right paraspinal mass with metastatic lesion possibly, status post CT-guided biopsy. 3. Coumadin coagulopathy, improved. 4. On Lovenox subcutaneously, currently. 5. Hypercalcemia, possibly secondary to malignancy. 6. Rule out multiple myeloma, IgG hyperglobulinemia as well as high free lambda chain 7. Possible right lung pneumonia, improving. 8. Hyperglycemia. 9. History of deep vein thrombosis. 10.Hyperlipidemia. 11.History of Coumadin monitoring. 12.Hypothyroidism. 13.History of enlarged prostate. RECOMMENDATIONS AND DISCUSSION: I recommend to continue current medications, continue symptomatic treatment as mentioned earlier. Per family's wishes, I contacted [facility] as mentioned earlier. The family would like to go to [facility] rather than [facility] at this time. So I would recommend continue the rest of medications, await [facility] feedback. Overall prognosis extremely guarded because of multiple complex medical issues. Discussed with Dr. Segovia, who is attending. Further recommendations to follow. MMODL / IJN: [id number] / [facility]
[2018-10-21] MEDS: LEVOTHYROXINE 25 MCG TAB PO SCH (06:08)
[2018-10-21] MEDS: ENOXAPARIN 100 MG/ML SYRINGE SQ SCH ×2 (08:12→21:18)
[2018-10-21] MEDS: IPRATROPIUM-ALBUTEROL 3 ML NEB INHALATION SCH ×3 (08:22→19:33)
--- NOTE | 2018-10-21 10:48 | P.PN ---
Subjective Progress Note Date: 10/21/18 Principal diagnosis: Metastatic carcinoma, with a paraspinal mass and widespread bony metastasis, and pathologic fracture of the right hip This is a 68-year-old male patient was having pain in his right posterior shoulder blade and right hip area. He was progressively getting worse to the point where he was unable to walk and he was moving with the help of a cane. [facility] and he was seen by Dr. Herring and the patient was found to have a pathologic fracture of the right femoral neck. The patient did not have any trauma prior to this event. He was immediately sent over to the hospital where he was subjected to further workup and he was found to have hypercalcemia with a calcium level of 12 and further evaluation with a CAT scan of the chest abdomen and pelvis showed a 5.6 x 4.7 cm mass within the posterior medial aspect of the right upper lobe and the mass was invading the thoracic vertebral body at the level of T6 and was including the spinal canal with mass effect on the thoracic segment of the spinal cord. There was another 1.5 x 1 cm noncalcified pleural-based nodule posterior lateral part of the right lower lobe. The patient was also found to have another 1.5 x 1.5 cm soft tissue nodule in the posterior medial aspect of the mid left with bony destruction and pathologic fracture. The bone scan showed metastatic disease to the skeletal system with intense uptake in the right paraspinal T6 level and T6 vertebral body in addition to multiple foci of increased uptake within the thoracic segment as well as L1 and bilateral lateral rib uptake and uptake in the left scapular tip and in the right femoral head and neck area. MRI of the 6 by showed a right paraspinal mass with infiltration into the T6 vertebral segment and epidurals space. Mass is less than 1 mm from the spinal cord without infiltration at this point in time. There is mild displacement of the spinal cord from [id number] without overt compression at this point in time. The patient was subjected to hydration. Calcium level improved and is down to 10.3. The patient is laying comfortably in bed. No hemoptysis. No pleurisy. Pain is under good control for now. Denies having any motor weakness in lower extremities. No urinary or stool incontinence. No numbness or tingling in lower extremities bilaterally. No motor deficits. His pain was mainly in the right hip area and he was unable to bear weight. No weight loss. No other constitutional symptoms. He has had previous history of DVT and he is told to have a underlying hypercoagulability and based on that the patient was subjected to long-term anticoagulation. On 10/16/2018 I'm seeing this patient for a follow-up. The patient was again reevaluated by orthopedic surgery and based on Dr. Herring's opinion, this surgery for right hip fracture cannot be performed in our hospital. This is a complex surgery in May need to be done by a oncologic orthopedist. For that reason he hasn't made recommendations to transfer this patient, [facility] for surgical repair of the hip. Meanwhile, we decided to proceed with a fine-needle aspirate of the paraspinal/lung mass to establish tissue diagnosis. This was done by interventional radiology. The patient otherwise doing well. He is in good spirits. He has no pain issues for now. No nausea vomiting or abdominal pain. Radiation oncology and medical oncology and orthopedic surgery are all following the case. On 10/17/2018 the patient remains in stable condition. The patient underwent a fine-needle aspirate of the paraspinal mass. Pathology is not available is still pending for now. 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 It final diagnoses not been established yet. We'll continue to follow. Oncology is on the case. On 10/19/2018 patient seen in follow-up in medical surgical floor. Denies any acute complaints, denies any shortness of breath, room air pulse ox is 94%, he is afebrile, hemodynamically stable, patient underwent a fine-needle aspirate of the paraspinal mass, and biopsy results are still pending. Today's labs have been reviewed, white blood cell count is 8.6, hemoglobin is 15. Patient has been on bedrest, denies any hip pain, denies any fever, chills, denies any chest pain, shortness of breath, denies any numbness or tingling. No loss of bowel or bladder control. Transfer is pending to [facility] today for evaluation by orthopedic oncologist On 10/20/2018 patient seen in follow-up on medical surgical floor. He remains on bedrest, he is nonweightbearing on the right leg. Still awaiting transfer to a tertiary care facility, and the [facility]opedic oncologist at [facility] is apparently on vacation and out of the country at this time. Awaiting further input on possible transfer to another tertiary care facility if orthopedic oncology service is available possibly a [facility] or [facility]. Currently patient remains stable, he denies any specific complaints, no complaint of chest pain, shortness of breath, vital signs are stable. Patient is in good spirits, although becoming slightly teary-eyed. No fever or chills. Room air pulse ox is 96%, vital signs are stable, lung sounds are clear, patient is working on his incentive spirometer, he is achieving 2000 mL on the today. No neurologic deficits, no numbness or tingling in lower extremities, no loss of bowel or bladder control. We'll speak to the attending and oncology to see if there is any further development on placement for orthopedic oncology evaluation. On 10/21/2018 patient seen in follow-up on medical surgical floor. Still awaiting a bed at the [facility]. But there is an accepting team at the [facility] who has agreed to take the patient. Today she is awake and alert, oriented 3, in no acute distress. No specific complaints, lung sounds are clear, patient is working on his incentive spirometer, no pain, no neurologic deficits, no numbness or tingling in upper or lower extremities, no difficulty breathing, or chest pain, vital signs are stable, room air pulse ox is 96%. Afebrile, he is on GI and DVT prophylaxis. Fine-needle aspirate biopsy of the paraspinal mass was positive for plasma cell myeloma. Objective - Vital Signs Vital signs: Vital Signs Temp 97.6 F 10/21/18 01:28 Pulse 68 10/21/18 08:33 Resp 16 10/21/18 07:43 BP 148/86 10/21/18 07:43 Pulse Ox 96 10/21/18 07:43 Intake & Output 10/20/18 10/21/18 10/21/18 18:59 06:59 18:59 Intake Total 1280 Output Total 1075 Balance 1280 -1075 Weight 86.183 kg Intake: Intake, IV Titration 800 Amount Sodium Chloride 0.9% 1, 700 000 ml @ 100 mls/hr IV . Q10H MARJ Rx#:[id number] cefTRIAXone 1 gm In 100 Sodium Chloride 0.9% 50 ml @ 100 mls/hr IVPB Q24HR [facility]J Rx#:[id number] Oral 480 Output: Urine 1075 Other: Voiding Method Urinal Urinal Urinal # Bowel Movements 1 - Exam GENERAL EXAM: Alert, oriented 3, pleasant 68-year-old white male comfortable in no apparent distress. HEAD: Normocephalic/atraumatic. EYES: Normal reaction of pupils, equal size. Conjunctiva pink, sclera white. NOSE: Clear with pink turbinates. THROAT: No erythema or exudates. NECK: No masses, no JVD, no thyroid enlargement, no adenopathy. CHEST: No chest wall deformity. Symmetrical expansion. LUNGS: Equal air entry with no crackles, wheeze, rhonchi or dullness. CVS: Regular rate and rhythm, normal S1 and S2, no gallops, no murmurs, no rubs ABDOMEN: Soft, nontender. No hepatosplenomegaly, normal bowel sounds, no guarding or rigidity. EXTREMITIES: No clubbing, no edema, no cyanosis, 2+ pulses and upper and lower extremities. MUSCULOSKELETAL: Muscle strength and tone normal. SPINE: No scoliosis or deformity SKIN: No rashes CENTRAL NERVOUS SYSTEM: Alert and oriented -3. No focal deficits, tone is normal in all 4 extremities. PSYCHIATRIC: Alert and oriented -3. Appropriate affect. Intact judgment and insight. - Labs CBC & Chem 7: 10/19/18 06:40 10/17/18 07:16 Assessment and Plan Plan: Assessment: 1 metastatic carcinoma the patient has a 5.6 x 4.7 cm mass within the posterior medial aspect of the right upper lobe that has invaded into the vertebral body of T6 spine encroaching on the spinal canal. MRI of the spine did not show any mass effect and the mass was probably within few millimeters away from the spinal cord. Neurologically the patient does not have any motor deficits in lower extremities bilaterally. Nevertheless, the patient has extensive skeletal metastases including a pathologic fracture of the right hip, invasion of the T6 body, numerous thoracic segments involved at the level of L1 and bilateral rib uptake and left scapular tip uptake with cancer. The patient underwent a fine- needle aspirate of the paraspinal mass. Pathology is positive for plasma cell myeloma 2 pathologic right hip fracture 3 DVT, history of and the patient has been long-term anticoagulation 4 BPH 5 hyperlipidemia 6 hypothyroidism 7 hypercalcemia secondary to above, improved 8 abnormal serum protein electrophoresis with paraproteinemia Plan: Per patient's and his family request arrangements have been made for transfer to the [facility], and patient has been accepted there [facility] currently there are no beds available. Today he is without specific complaints, remains on bedrest, no pain, no difficulty breathing, but aside are stable, he is on GI and DVT prophylaxis, fine-needle aspirate of the paraspinal mass was positive for plasma cell myeloma. Will await further updates on the status of transfer to [facility] I performed a history & physical examination of the patient and discussed their management with my nurse practitioner, Leatha Coronado. I reviewed the nurse practitioner's note and agree with the documented findings and plan of care. Lung sounds are positive for clear. The findings and the impression was discussed with the patient. I attest to the documentation by the nurse practitioner. Time with Patient: Less than 30
--- NOTE | 2018-10-21 13:11 | PN ---
PROGRESS NOTE DATE OF SERVICE: 10/21/2018 This 68-year-old gentleman who was admitted with multiple medical problems including acute right hip pathologic fracture, also had a vertebral lesion as well as right paraspinal lesion. The patient had a biopsy done but however the orthopedic surgery recommend the patient to be seen by orthopedic oncologist so I contacted [facility] who has accepted the patient yesterday. They are waiting for bed. No chest pain. No palpitations. No fever. PHYSICAL EXAMINATION: On exam, alert and oriented x3. Pulse is 63, blood pressure 148/86, respirations 16, temperature 97.6, pulse ox 96% on room air. HEENT: Conjunctivae normal. NECK: No jugular venous distention. CARDIOVASCULAR: S1, S2 muffled. RESPIRATORY: Breath sounds diminished in the bases. A few scattered rhonchi. No crackles. Abdomen is soft, nontender. LEGS: Status post right hip fracture. NERVOUS SYSTEM: No focal deficits. LABS: CBC within normal limits. ASSESSMENT: 1. Acute right hip pathological fracture with severe pain and gait dysfunction. 2. Extensive T6 vertebral involvement as well as right paraspinal mass with metastatic lesions possibly, status post CT-guided biopsy. 3. Coumadin coagulopathy, improved. 4. On Lovenox subcutaneously currently. 5. Hypercalcemia, possibly secondary to malignancy. 6. Rule out multiple myeloma, IgG hyperglobulinemia as well as high free lambda chains. 7. Possible right lung pneumonia, improving. 8. Hyperglycemia. 9. History of deep venous thrombosis. 11.History of Coumadin monitoring. 12.Hypothyroidism. 13.History enlarged prostate. RECOMMENDATIONS AND DISCUSSION: Recommend to continue current medications, continue with monitoring, continue symptomatic treatment. Otherwise we are awaiting for a bed at [facility]. Please note, I discussed the case at length with the [facility] who accepted the patient for further evaluation and management. Further recommendations to follow. Prognosis guarded. Discussed with the patient at length and the family opted for [facility]. Please refer to the previous notes and test case developer records for further details. MMODL / IJN: [id number] / MTDD
[2018-10-21] MEDS: FINASTERIDE 5 MG TAB PO SCH (17:00)
[2018-10-21] MEDS: TAMSULOSIN 0.4 MG CAP.ER.24H PO SCH (17:00)
--- NOTE | 2018-10-21 17:23 | P.PN ---
Subjective Progress Note Date: 10/21/18 Principal diagnosis: Right hip pain, pathological fracture, plasma cell myeloma In follow-up today patient still has right hip discomfort, otherwise he denies any significant pain in the back, neurological symptoms, incontinence of bowel or bladder, numbness or tingling in the back or legs. Musculoskeletal strength is fairly well maintained other than in the right leg. Objective - Vital Signs Vital signs: Vital Signs Temp 97.6 F 10/21/18 01:28 Pulse 68 10/21/18 08:33 Resp 16 10/21/18 07:43 BP 148/86 10/21/18 07:43 Pulse Ox 96 10/21/18 07:43 Intake & Output 10/20/18 10/21/18 10/21/18 18:59 06:59 18:59 Intake Total 1280 Output Total 1075 Balance 1280 -1075 Weight 86.183 kg Intake: Intake, IV Titration 800 Amount Sodium Chloride 0.9% 1, 700 000 ml @ 100 mls/hr IV . Q10H [facility]J Rx#:[id number] cefTRIAXone 1 gm In 100 Sodium Chloride 0.9% 50 ml @ 100 mls/hr IVPB Q24HR MARJ Rx#:[id number] Oral 480 Output: Urine 1075 Other: Voiding Method Urinal Urinal Urinal # Bowel Movements 1 - Constitutional General appearance: Present: average body habitus, cooperative, no acute distress - EENT Eyes: Present: anicteric sclerae, edentulous - Respiratory Details: respirations even and unlabored - Integumentary Integumentary: Present: pale - Neurologic Neurologic: Present: CNII-XII intact - Psychiatric Psychiatric: Present: A&O x's 3, appropriate affect, intact judgment & insight - Labs CBC & Chem 7: 10/19/18 06:40 10/17/18 07:16 Assessment and Plan (1) Plasma cell myeloma Current Visit: Yes Status: Acute Priority: High Code(s): C90.00 - MULTIPLE MYELOMA NOT HAVING ACHIEVED REMISSION SNOMED Code(s): 302655654 (2) Paraspinal mass Current Visit: Yes Status: Acute Priority: High Code(s): R22.2 - LOCALIZED SWELLING, MASS AND LUMP, TRUNK SNOMED Code(s): 793497652 Plan: Dr. Anguiano discussed with the patient diagnosis of plasma cell myeloma. The prognosis for this disease can be 7-10 years, and possibly even longer based on patient's response to each of the multiple lines of therapy that are available. Patient has good PS and there will be consideration for autologous SCT much later down the line (at least 6 mo of treatment 1st). There is also a role for radiation as treatment for painful bony metastasis, fractures and is the preferred modality of treatment versus an invasive procedure for spinal mass as the mass is asymptomatic and plasmacytomas are very responsive to XRT. Bisphosphonate/rank ligand inhibitor treatment is going to be held until the patient has been evaluated by Orthopedic Oncologist in anticipation of otherpedic procedure. The condition that needs to be addressed first is the hip so the pt can be ambulatory. Radiation to the paraspinal mass would be 2nd then, systemic therapy would begin. Case was discussed with Pulmonary MERCHANT MARINER. There is some difficulty getting the patient to Orthopedic Oncologist because of lack of hospital beds availability. Currently pending first available from either [facility], [facility] and, today, [facility] has been contacted. Recommend that the facility pt is transferred to have Neurosurgery available due to paraspinal mass (IF it were to become symptomatic). Doctor attests: I performed a history and physical examination of this patient, developed impression and plan of care, discussed with dictator. I agree with dictators note, documented as a scribe.
[2018-10-21 20:48] VITALS: BP 120/66; PULSE 80; RESP 18; TEMP 97.7
[2018-10-21] MEDS: HYDROcodone/APAP 5-325MG 1 EACH TAB PO PRN (21:18)
--- NOTE | 2018-10-22 21:50 | DS ---
DISCHARGE SUMMARY DATE OF SERVICE: 10/22/2008. DISCHARGE ADDENDUM: This 68-year-old gentleman admitted with right hip pathological fracture also had significant possibly malignant metastatic lesion in the thoracic vertebra and paracentral spinal lesion also. I have discussed the case with [facility] admitting unit and the patient is being transferred to [facility] when a bed is available. Please refer to the previous dictations for list of diagnosis and medications. The physical exam remained unchanged. The patient is stable for transfer but overall prognosis guarded. Please also refer to multiple consults and progress notes for further details. MMODL / IJN: [id number] /
== END 2018-10-21 22:52 | disposition short-term general hospital (02) | DRG 477 ==
LOC: EC 11:31 → 4SSUR 15:11 → 4MS4W 10-19 22:57 → 4SSUR 10-19 22:57
PROVIDERS: ADMIT Hospitalist; ATTEND Hospitalist
PROC: 0PB43ZX Excision of Thoracic Vertebra, Percutaneous Approach, Diagnostic (ICD-10-PCS; principal; 2018-10-16)
DX: M84.451A Pathological fracture, right femur, initial encounter for fracture (principal); J18.9 Pneumonia, unspecified organism; C90.00 Multiple myeloma not having achieved remission; C79.51 Secondary malignant neoplasm of bone; D68.59 Other primary thrombophilia; D68.9 Coagulation defect, unspecified; D89.2 Hypergammaglobulinemia, unspecified; E03.9 Hypothyroidism, unspecified; E78.5 Hyperlipidemia, unspecified; E83.52 Hypercalcemia; I10 Essential (primary) hypertension; N40.0 Benign prostatic hyperplasia without lower urinary tract symptoms; T45.515A Adverse effect of anticoagulants, initial encounter; Z79.01 Long term (current) use of anticoagulants; Z79.890 Hormone replacement therapy; Z79.899 Other long term (current) drug therapy; Z80.1 Family history of malignant neoplasm of trachea, bronchus and lung; Z86.718 Personal history of other venous thrombosis and embolism; Z87.891 Personal history of nicotine dependence; G89.29 Other chronic pain; R26.9 Unspecified abnormalities of gait and mobility
CPT/HCPCS: 20220; 36415; 70450; 71046; 71260; 72157; 74177; 77012; 78306; 80048; 80053; 81001; 82550; 82784; 83605; 83615; 83735; 83883; 83970; 84100; 84153; 84165; 84443; 84484; 85025; 85610; 85652; 85730; 86140; 86334; 88305; 88342; 93005; 94640; 94760; 96360; 96361; 99285

== ENCOUNTER 2019-02-06 10:03 | Inpatient (IN) | payer MEDICARE, BC ==
[2019-02-06] MEDS ORDERED: SODIUM CHLORIDE 0.9% 500 ML 500 ML IV STA (10:40)
[2019-02-06] MEDS ORDERED: SODIUM CHLORIDE 0.9% 1,000 ML IV STA (10:40)
--- NOTE | 2019-02-06 10:47 | ED ---
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 Patient also has multiple myeloma which was diagnosed in October. Patient had a surgery on both hips as well as his back for the multiple myeloma. Patient got up today and was having difficulty controlling his right arm and he was having slurred speech. Patient states this lasted for about 20 minutes and it started to resolve when he was in the em bolus. EMS verified that he was having slurred speech and right sided weakness. Patient also was hypotensive initially with EMS. By the time they arrived the patient had no symptoms of slurred speech or weakness in his blood pressure was over 100 systolic. Patient denies any recent fever chills. Patient denies any nausea. Patient states he did start having diarrhea yesterday and today but he does not believe he had an excessive amount. Patient denies any abdominal pain. Patient denies any chest pain palpitations or difficulty breathing. - Related Data Home Medications Medication Instructions Recorded Confirmed Acetaminophen [Tylenol Arthritis] 1,300 mg PO Q12H PRN 10/14/18 10/14/18 Finasteride [Proscar] 5 mg PO DAILY 10/14/18 10/14/18 HYDROcodone/APAP 5-325MG [[place] 1 tab PO BID PRN 10/14/18 10/14/18 5-325] Levothyroxine Sodium [Synthroid] 25 mcg PO DAILY 10/14/18 10/14/18 Methocarbamol [Robaxin-750] 750 mg PO QID PRN 10/14/18 10/14/18 Simvastatin [Zocor] 20 mg PO HS 10/14/18 10/14/18 Tamsulosin HCl [Flomax] 0.4 mg PO DAILY 10/14/18 10/14/18 Warfarin [Coumadin] 5 mg PO FR 10/14/18 10/14/18 Warfarin [Coumadin] 7.5 mg PO SUMOTUWETHSA 10/14/18 10/14/18 Allergies Allergy/AdvReac Type Severity Reaction Status Date / Time No Known Allergies Allergy Unverified 10/14/18 12:37 Review of Systems ROS Statement: Those systems with pertinent positive or pertinent negative responses have been documented in the HPI. ROS Other: All systems not noted in ROS Statement are negative. Past Medical History Past Medical History: Deep Vein Thrombosis (DVT), Hyperlipidemia, Thyroid Diso rder Additional Past Medical History / Comment(s): BPH, previous history of DVT with hypercoagulability maintained on long-term and to coagulation with warfarin, hyperlipidemia History of Any Multi-Drug Resistant Organisms: None Reported Past Surgical History: No Surgical Hx Reported Past Anesthesia/Blood Transfusion Reactions: No Reported Reaction Past Psychological History: No Psychological Hx Reported Smoking Status: Never smoker Past Alcohol Use History: Occasional Past Drug Use History: None Reported - Past Family History Father Family Medical History: Cancer (Lung cancer in the father who from complications of lung cancer), Prostate Disorder Brother(s) Family Medical History: Prostate Disorder General Exam - General Exam Comments Initial Comments: GENERAL: Patient is well-developed and well-nourished. Patient is nontoxic and well- hydrated and is in mild distress. ENT: Neck is soft and supple. No significant lymphadenopathy is noted. Oropharynx is clear. Moist mucous membranes. Neck has full range of motion without eliciting any pain. EYES: The sclera were anicteric and conjunctiva were pink and moist. Extraocular movements were intact and pupils were equal round and reactive to light. Eyelids were unremarkable. PULMONARY: Unlabored respirations. Good breath sounds bilaterally. No audible rales rhonc hi or wheezing was noted. CARDIOVASCULAR: There is a regular rate and rhythm without any murmurs gallops or rubs. ABDOMEN: Soft and nontender with normal bowel sounds. SKIN: Skin is clear with no lesions or rashes and otherwise unremarkable. NEUROLOGIC: Patient is alert and oriented x3. Cranial nerves II through XII are grossly intact. Motor and sensory are also intact. Normal speech, volume and content. Symmetrical smile. MUSCULOSKELETAL: Normal extremities with adequate strength and full range of motion. LYMPHATICS: No significant lymphadenopathy is noted PSYCHIATRIC: Normal psychiatric evaluation. Limitations: no limitations Course Vital Signs 02/06/19 02/06/19 02/06/19 10:14 10:15 10:30 Temperature 97.8 F Pulse Rate 82 82 80 Respiratory 16 16 16 Rate Blood Pressure 96/65 98/62 O2 Sat by Pulse 99 99 Oximetry 02/06/19 02/06/19 02/06/19 11:00 11:30 12:00 Temperature Pulse Rate 72 71 72 Respiratory 16 18 16 Rate Blood Pressure 95/65 97/58 94/64 O2 Sat by Pulse 97 Oximetry Medical Decision Making - Medical Decision Making EKG shows normal sinus rhythm at 84 bpm AL interval 136 QRS is 94 QT interval 44 QTC is 477. EKG shows no ST segment elevation or depression. CT of the brain shows no acute abnormality. CT of the head and neck showed no acute abnormality. Patient had an episode of slurred speech and was wearing a CAT scan but it lasted only a few minutes. Patient is completely asymptomatic at this time. Family did not want to be transferred noted the patient. Patient stated he understood the fact that we had no neurology in-house but he does not want to be transferred out. Dr. Chaudhary did except the admission I wrote admitting orders. - Lab Data Result diagrams: 02/06/19 10:12 02/06/19 10:12 Lab Results 02/06/19 02/06/19 02/06/19 Range/Units 10:12 10:12 10:12 WBC 2.5 L (3.8-10.6) k/uL RBC 4.05 L (4.30-5.90) m/uL Hgb 12.4 L (13.0-17.5) gm/dL Hct 38.1 L (39.0-53.0) % MCV 94.1 (80.0-100.0) fL MCH 30.7 (25.0-35.0) pg MCHC 32.7 (31.0-37.0) g/dL RDW 17.6 H (11.5-15.5) % Plt Count 164 (150-450) k/uL Neutrophils % 77 % Lymphocytes % 9 % Monocytes % 8 % Eosinophils % 4 % Basophils % 1 % Neutrophils # 1.9 (1.3-7.7) k/uL Lymphocytes # 0.2 L (1.0-4.8) k/uL Monocytes # 0.2 (0-1.0) k/uL Eosinophils # 0.1 (0-0.7) k/uL Basophils # 0.0 (0-0.2) k/uL Hypochromasia Slight Anisocytosis Slight PT 10.5 (9.0-12.0) sec INR 1.0 (<1.2) APTT 22.2 (22.0-30.0) sec Sodium 136 L (137-145) mmol/L Potassium 4.2 (3.5-5.1) mmol/L Chloride 107 (98-107) mmol/L Carbon Dioxide 23 (22-30) mmol/L Anion Gap 6 mmol/L BUN 16 (9-20) mg/dL Creatinine 0.69 (0.66-1.25) mg/dL Est GFR (CKD-EPI)AfAm >90 (>60 ml/min/1.73 sqM) Est GFR (CKD-EPI)NonAf >90 (>60 ml/min/1.73 sqM) Glucose 134 H (74-99) mg/dL Calcium 6.8 L (8.4-10.2) mg/dL Total Bilirubin 1.1 (0.2-1.3) mg/dL AST 40 (17-59) U/L ALT 14 (4-49) U/L Alkaline Phosphatase 66 (38-126) U/L Troponin I (0.000-0.034) ng/mL Total Protein 5.7 L (6.3-8.2) g/dL Albumin 3.0 L (3.5-5.0) g/dL 02/06/19 Range/Units 10:12 WBC (3.8-10.6) k/uL RBC (4.30-5.90) m/uL Hgb (13.0-17.5) gm/dL Hct (39.0-53.0) % MCV (80.0-100.0) fL MCH (25.0-35.0) pg MCHC (31.0-37.0) g/dL RDW (11.5-15.5) % Plt Count (150-450) k/uL Neutrophils % % Lymphocytes % % Monocytes % % Eosinophils % % Basophils % % Neutrophils # (1.3-7.7) k/uL Lymphocytes # (1.0-4.8) k/uL Monocytes # (0-1.0) k/uL Eosinophils # (0-0.7) k/uL Basophils # (0-0.2) k/uL Hypochromasia Anisocytosis PT (9.0-12.0) sec INR (<1.2) APTT (22.0-30.0) sec Sodium (137-145) mmol/L Potassium (3.5-5.1) mmol/L Chloride (98-107) mmol/L Carbon Dioxide (22-30) mmol/L Anion Gap mmol/L BUN (9-20) mg/dL Creatinine (0.66-1.25) mg/dL Est GFR (CKD-EPI)AfAm (>60 ml/min/1.73 sqM) Est GFR (CKD-EPI)NonAf (>60 ml/min/1.73 sqM) Glucose (74-99) mg/dL Calcium (8.4-10.2) mg/dL Total Bilirubin (0.2-1.3) mg/dL AST (17-59) U/L ALT (4-49) U/L Alkaline Phosphatase (38-126) U/L Troponin I 0.015 (0.000-0.034) ng/mL Total Protein (6.3-8.2) g/dL Albumin (3.5-5.0) g/dL Disposition Clinical Impression: Transient cerebral ischemia, Diarrhea Disposition: ADMITTED IP TO THIS HOSP Referrals: Elver Blanchard, PAC [Primary Care Provider] - 1-2 days Time of Disposition: 13:30
[2019-02-06 11:10] LABS: Anisocytosis Slight; Basophils % (A) 1 %; Eosinophils # (A) 0.1 k/uL (0-0.7); Eosinophils % (A) 4 %; HCT 38.1 % (39.0-53.0); HGB 12.4 gm/dL (13.0-17.5); Hypochromasia Slight; Lymphocytes # (A) 0.2 k/uL (1.0-4.8); Lymphocytes % (A) 9 %; MCH 30.7 pg (25.0-35.0); MCHC 32.7 g/dL (31.0-37.0); MCV 94.1 fL (80.0-100.0); Mean Platelet Volume 9.2; Monocytes # (A) 0.2 k/uL (0-1.0); Monocytes % (A) 8 %; Neutrophils # (A) 1.9 k/uL (1.3-7.7); Neutrophils % (A) 77 %; Platelet Count 164 k/uL (150-450); RBC 4.05 m/uL (4.30-5.90); RDW 17.6 % (11.5-15.5); WBC 2.5 k/uL (3.8-10.6)
[2019-02-06 11:16] LABS: ALT 14 U/L (4-49); African American GFR (CKD) >90 (>60 ml/min/1.73 sqM); Anion Gap 6 mmol/L; Blood Urea Nitrogen 16 mg/dL (9-20); Calcium 6.8 mg/dL (8.4-10.2); Carbon Dioxide 23 mmol/L (22-30); Chloride 107 mmol/L (98-107); Glucose 134 mg/dL (74-99); Non-African American GFR(CKD) >90 (>60 ml/min/1.73 sqM); Partial Thromboplastin Time 22.2 sec (22.0-30.0); Prothrombin Time 10.5 sec (9.0-12.0); Sodium 136 mmol/L (137-145); Total Bilirubin 1.1 mg/dL (0.2-1.3)
[2019-02-06 11:22] LABS: AST 40 U/L (17-59); Potassium 4.2 mmol/L (3.5-5.1); Total Protein 5.7 g/dL (6.3-8.2)
[2019-02-06 11:23] LABS: Alkaline Phosphatase 66 U/L (38-126)
--- NOTE | 2019-02-06 11:23 | CT ---
EXAMINATION TYPE: CT brain wo con for TPA DATE OF EXAM: 02/06/2019 HISTORY: Possible TIA, acute onset neuro deficits. CT DLP: 1607.8 mGycm. Automated Exposure Control for Dose Reduction was Utilized. TECHNIQUE: CT scan of the head is performed without contrast. COMPARISON: CT brain October 14, 2018. FINDINGS: There is no acute intracranial hemorrhage or midline shift identified. There is diffuse v entricular and sulcal prominence consistent with diffuse age-related cerebral atrophy. There is low- attenuation in the periventricular white matter consistent with chronic small vessel ischemic change. The globes are intact and the visualized sinuses are clear. IMPRESSION: No acute intracranial hemorrhage or midline shift. There is [id number] diffuse ag e-related cerebral atrophy and chronic small vessel ischemic change redemonstrated. There is no sign ificant change from prior.
--- NOTE | 2019-02-06 12:10 | XR ---
EXAMINATION TYPE: XR chest 2V DATE OF EXAM: 02/06/2019 COMPARISON: Chest x-ray and CT October 14, 2018 HISTORY: Altered mental status and weakness. TECHNIQUE: Frontal and lateral views of the chest are obtained. FINDINGS: There is new long Segment fusion hardware upper to mid thoracic spine. Cardiac silhouette size upper limits of normal. Chronic parenchymal change without new suspicious focal airspace opacity or pneumothorax. Small to tiny left pleural effusion noted on lateral view. IMPRESSION: Chronic changes with new small to tiny left pleural effusion.
--- NOTE | 2019-02-06 12:14 | CT ---
EXAMINATION TYPE: CT angio head neck DATE OF EXAM: 02/06/2019 HISTORY: Possible TIA, acute onset neuro deficit. COMPARISON: NONE CT DLP: 1607.8 mGycm. Automated Exposure Control for Dose Reduction was Utilized. TECHNIQUE: CTA scan of the head and neck are performed without and with IV Contrast, patient injecte d with 65 ml mL of Isovue 370, axial images are obtained, coronal and sagittal reformatted images are reviewed. Three-D reconstructed images are created on an independent workstation and reviewed. FINDINGS: Carotid/Vascular Structures: Normal three-vessel origin from aortic arch. Right common carotid artery shows normal origin from right brachiocephalic artery. There is no significant plaque or stenosis in common or internal carotid arteries bilaterally including a level carotid bulb. Patent external graves tid arteries without significant plaque or stenosis. There is dominant left vertebral artery. Right vertebral artery becomes stenotic or occluded distally before basilar junction. Hypoplastic bilateral posterior communicating arteries. No significant foca l stenosis or aneurysmal change in the posterior circulation. Anterior circulation shows no significant focal stenosis or aneurysmal change. Patent anterior commun icating artery not well identified without raw data images. Other: Partial visualization of postsurgical change lower cervical spine extending into the thoracic spine. Underlying levoconvex scoliotic curvature. Mild emphysematous change lung apices. IMPRESSION: 1. No significant stenosis in common or internal carotid arteries bilaterally. 2. No significant stenosis or aneurysm at the level of the [place].
[2019-02-06] MEDS: SODIUM CHLORIDE 0.9% 1,000 ML IV SCH ×2 (14:49→23:32)
[2019-02-06] MEDS ORDERED: PROCHLORPERAZINE 10 MG TAB PO PRN (21:20)
[2019-02-06] MEDS ORDERED: ACETAMINOPHEN TAB 500 MG TAB PO PRN (21:20)
[2019-02-06] MEDS ORDERED: DEXAMETHASONE 4 MG TAB PO SCH (21:30)
[2019-02-06] MEDS: ATORVASTATIN 10 MG TAB PO SCH (21:47)
[2019-02-06 22:47] LABS: Appearance,Urine Clear (Clear); Bilirubin,Urine Negative (Negative); Blood,Urine Negative (Negative); Color,Urine Yellow; Glucose,Urine (UA) Negative (Negative); Ketones,Urine Negative (Negative); Leukocyte Esterase,Urine Negative (Negative); Nitrite,Urine Negative (Negative); PH, Urine 5.5 (5.0-8.0); Protein,Urine Negative (Negative); Specific Gravity,Urine 1.032 (1.001-1.035); Urobilinogen,Urine <2.0 mg/dL (<2.0)
--- NOTE | 2019-02-07 00:16 | HP ---
HISTORY AND PHYSICAL DATE OF SERVICE: 02/06/2019 CHIEF COMPLAINTS: Weakness and as well as tremors and difficulty in speaking, transient in nature. HISTORY: This 68-year-old gentleman with a past medical history of recently diagnosed multiple myeloma in [facility] apparently after right hip pathological fracture, is receiving chemotherapy. The patient apparently today was noted some weakness on the right wrist and right arm which lasted for a brief period, also had some associated with some unsteadiness and significant difficulty controlling the right arm and as well as some slurring of speech also. The episode of Holter lasted for about 20 minutes. After that, the patient felt better and the patient came to [facility] and was admitted for further evaluation and treatment. The extensive evaluation in the ER showed CT scan showed a CAT scan and other neurovascular workup did not find any acute abnormality. A CT angio was also negative showing no significant stenosis. The patient admitted for evaluation and treatment. Patient also has some diarrhea. Patient also was hypotensive also. There is no history of any fever, rigors or chills. No history of headache, loss of consciousness, seizures at this time. PAST MEDICAL HISTORY: History of recently diagnosed multiple myeloma, history of DVT, hypertension, hyperlipidemia, history of BPH, history of previous deep vein thrombosis and hypercoagulability. MEDICATIONS: Prior to admission home medications are: 1. Bortezomib. 2. OxyContin 10 mg p.o. 3. Dexamethasone 20 mg p.r.n. 4. Protonix 40 daily. 5. Vitamin D3 3000 daily. 6. Bactrim DS 1 p.o. p.r.n. 7. Vitamin B6 100 mg p.o. b.i.d. 8. Senna 17.2 mg q.h.s. 9. Compazine 10 mg q.6h p.r.n. 10.[place] 10 mg q.4 p.r.n. 11.Colace 100 mg p.o. b.i.d. 12.Acyclovir 400 mg p.o. daily. 13.Synthroid 25 mcg p.o. daily. 14.Flomax 0.4 daily. 15.Zocor 20 mg p.o. q.h.s. 16.Tums 1000 mg p.o. daily. 17.Eliquis 5 mg p.o. b.i.d. 18.Revlimid 25 mg p.o. q.h.s. 19.Proscar 5 mg p.o. daily. 20.Tylenol 1.3 g p.o. b.i.d. ALLERGIES: None. FAMILY HISTORY: History of prostate cancer in the family. SOCIAL HISTORY: No history of smoking. No history of alcohol intake. REVIEW OF SYSTEMS: ENT: No diminished vision. Diminished hearing. Otherwise as mentioned earlier. Cardiovascular no angina or palpitations. Respiration: No cough. No hemoptysis. GI no nausea or vomiting. no dysuria. Nervous System: As Mentioned earlier. HEMATOLOGY/ONCOLOGY: No history of anemia. MUSCULOSKELETAL: As mentioned earlier. ENDOCRINE: No history of diabetes or hypothyroidism. CONSTITUTIONAL: As mentioned earlier. DERMATOLOGY: Negative. RHEUMATOLOGY: Negative. PSYCHIATRY as mentioned. PHYSICAL EXAMINATION: Alert and oriented times three. Pulse 73, blood pressure 96/50, respiration 18, temperature 98.9, pulse ox 98% on room air. HEENT: Conjunctivae normal. Oral mucosa moist. Neck is no jugular venous distention. No carotid bruit. No lymph node enlargement. Cardiovascular system: S1, S2 muffled. No S3, no S4. RESPIRATORY: Breath sounds diminished in the bases. No rhonchi. No crackles. ABDOMEN: Soft, nontender. No mass palpable. LEGS: No edema. No swelling. NERVOUS SYSTEM: Higher functions as mentioned earlier. Cranial nerves 2nd thru 12 grossly intact. No nystagmus. No diplopia. Moves all 4 limbs. No sensory or cerebral dysfunction. Power is normal. Reflexes normal. Gait is normal. SKIN: No ulcers. No rashes and no bleeding. JOINTS: No active deforming arthropathy. LYMPHATICS: No lymph nodes palpable in the neck, axillae or groin. LABORATORY DATA: WBC 2.5, hemoglobin 12.4. Sodium 136 ASSESSMENT: 1. Acute transient ischemic attack involving the right side caused by left hemispheric transient ischemic attack. 2. Multiple myeloma recently diagnosed. 3. Bicytopenia with anemia, leukopenia. 4. Hyponatremia. 5. Hypocalcemia. 6. History of deep vein thrombosis. 7. History of hypothyroidism. 8. History of benign prostatic hypertrophy. 9. History of bilateral hip replacement. 10.History of T6 vertebral involvement with right paraspinal mass, possibly secondary to multiple myeloma. RECOMMENDATIONS AND DISCUSSION: In this 68-year-old gentleman who presented with multiple complex medical issues, we will monitor the patient closely, continue the current medications, management and symptomatic treatment. I would recommend antiplatelet agents, DVT prophylaxis. Resume the home medications. Otherwise, I would also recommend neurology consultation. Neuro checks and I would also recommend MRI of the brain and discussed with staff. Prognosis guarded. Further recommendations to follow. See orders for details. We will continue to monitor. A copy of this dictation being forwarded to Dr. Blanchard and Dr. Segovia. We will continue to monitor. MMODL / IJN: [id number] /
[2019-02-07] MEDS: LEVOTHYROXINE 25 MCG TAB PO SCH (06:19)
[2019-02-07 07:52] LABS: Cholesterol 110 mg/dL (<200); HDL Cholesterol 37 mg/dL (40-60); LDL Cholesterol,Calculated 50 mg/dL (0-99); Triglycerides 116 mg/dL (<150)
[2019-02-07] MEDS: HYDROcodone/APAP 10-325MG 1 EACH TAB PO PRN ×2 (08:21→22:56)
[2019-02-07] MEDS ORDERED: DOCUSATE 100 MG CAP PO SCH (09:00)
[2019-02-07] MEDS: ACYCLOVIR 200 MG CAP PO SCH ×2 (10:28→17:33)
[2019-02-07] MEDS: APIXABAN 5 MG TAB PO SCH ×2 (10:28→20:43)
[2019-02-07] MEDS: CALCIUM CARBONATE 500 MG CHEWABLE PO SCH (10:28)
[2019-02-07] MEDS: CHOLECALCIFEROL 1,000 UNIT TAB PO SCH (10:29)
[2019-02-07] MEDS: PYRIDOXINE 50 MG TAB PO SCH ×2 (10:29→20:43)
[2019-02-07] MEDS: FINASTERIDE 5 MG TAB PO SCH (10:29)
[2019-02-07] MEDS: SULFAMETHOX-TMP 800-160MG 1 EACH TAB PO SCH ×2 (10:29→17:33)
[2019-02-07] MEDS: PANTOPRAZOLE 40 MG TABLET PO SCH (10:31)
[2019-02-07] MEDS: oxyCODONE ER 10 MG TAB.ER.12H PO SCH (12:44)
[2019-02-07] MEDS: SODIUM CHLORIDE 0.9% 1,000 ML IV SCH ×2 (12:44→17:37)
[2019-02-07 15:16] VITALS: BMI 22.8
[2019-02-07] MEDS: TAMSULOSIN 0.4 MG CAP.ER.24H PO SCH (17:33)
[2019-02-07] MEDS: ATORVASTATIN 10 MG TAB PO SCH (20:43)
[2019-02-07] MEDS ORDERED: SENNOSIDES 8.6 MG TAB PO SCH (21:00)
[2019-02-07] MEDS ORDERED: NON FORMULARY DRUG (Lenalidomide [Revlimid] 25 MG) PO SCH (21:00)
--- NOTE | 2019-02-07 21:35 | PN ---
PROGRESS NOTE DATE OF SERVICE: 02/07/2019 This 68-year-old gentleman admitted with slurring of speech and also some weakness of the right upper limb is evaluated for TIA. The patient cannot have an MRI because of the multiple rods at this time. The patient being closely monitored. The patient recently had a history of multiple myeloma. No chest pain. No palpitations. No fever. EXAM: Alert and oriented times three. Pulse 81. Blood pressure 114/57. Respirations 18. Temperature 97.9. Pulse ox 94% on room air. HEENT is conjunctivae normal. NECK: No JVD. CARDIOVASCULAR: S1, S2 muffled. RESPIRATIONS: Breath sounds diminished in the bases. A few scattered rhonchi and crackles. ABDOMEN is soft, nontender. LEGS are no edema. No focal deficits. LAB STUDIES: WBC 2.5, hemoglobin 14.4, calcium 6.8. Albumin is 3. ASSESSMENT: 1. Acute transient ischemic attack involving the right side caused by left hemispheric transient ischemic attack. 2. Multiple myeloma recently diagnosed, on treatment. 3. Bicytopenia, anemia and leukopenia secondary to multiple myeloma. 4. Hyponatremia. 5. Hypercalcemia. 6. History of deep vein thrombosis. 7. History of hypothyroidism. 8. History of benign prostatic hypertrophy. 9. History of bilateral hip replacement. 10.History of T6 vertebral involvement with right paraspinal mass, possibly secondary to multiple myeloma. 11.Mild hyponatremia. RECOMMENDATIONS AND DISCUSSION: In this 68-year-old gentleman who presented with multiple complex medical issues. I recommend to continue current medications, management and symptomatic treatment. Continue with anticoagulation. I would also recommend antiplatelet agents. Otherwise, I would also recommend evaluation by Neurology. Prognosis guarded because of multiple complex medical issues. Further recommendations to follow. The patient is already on Lipitor and fast lipid profile is also negative. MMODL / IJN: [id number] /
[2019-02-08] MEDS: SODIUM CHLORIDE 0.9% 1,000 ML IV SCH ×2 (06:08→11:02)
[2019-02-08] MEDS: LEVOTHYROXINE 25 MCG TAB PO SCH ×2 (06:09→06:10)
[2019-02-08 06:19] LABS: Anisocytosis Slight; Basophils % (A) 0 %; Eosinophils # (A) 0.4 k/uL (0-0.7); Eosinophils % (A) 14 %; HCT 31.5 % (39.0-53.0); HGB 10.4 gm/dL (13.0-17.5); Hypochromasia Slight; Lymphocytes # (A) 0.4 k/uL (1.0-4.8); Lymphocytes % (A) 13 %; MCH 31.1 pg (25.0-35.0); MCHC 33.2 g/dL (31.0-37.0); MCV 93.9 fL (80.0-100.0); Monocytes # (A) 0.5 k/uL (0-1.0); Monocytes % (A) 17 %; Neutrophils # (A) 1.4 k/uL (1.3-7.7); Neutrophils % (A) 52 %; Platelet Count 130 k/uL (150-450); RBC 3.35 m/uL (4.30-5.90); RDW 17.8 % (11.5-15.5); WBC 2.8 k/uL (3.8-10.6)
[2019-02-08 06:35] LABS: African American GFR (CKD) >90 (>60 ml/min/1.73 sqM); Anion Gap 3 mmol/L; Blood Urea Nitrogen 11 mg/dL (9-20); Carbon Dioxide 23 mmol/L (22-30); Chloride 112 mmol/L (98-107); Glucose 89 mg/dL (74-99); Non-African American GFR(CKD) >90 (>60 ml/min/1.73 sqM); Potassium 3.4 mmol/L (3.5-5.1); Sodium 138 mmol/L (137-145)
[2019-02-08] MEDS ORDERED: ASPIRIN 81 MG PO SCH (09:00)
[2019-02-08] MEDS: PYRIDOXINE 50 MG TAB PO SCH ×2 (09:04→17:28)
[2019-02-08] MEDS: PANTOPRAZOLE 40 MG TABLET PO SCH (09:05)
[2019-02-08] MEDS: CALCIUM CARBONATE 500 MG CHEWABLE PO SCH (09:05)
[2019-02-08] MEDS: CHOLECALCIFEROL 1,000 UNIT TAB PO SCH (09:05)
[2019-02-08] MEDS: ACYCLOVIR 200 MG CAP PO SCH ×2 (09:05→17:28)
[2019-02-08] MEDS: FINASTERIDE 5 MG TAB PO SCH (09:05)
[2019-02-08] MEDS: APIXABAN 5 MG TAB PO SCH ×2 (09:05→19:49)
[2019-02-08] MEDS ORDERED: Potassium Replacement Protocol 1 EACH MISC MISCELLANE PRN (10:34)
[2019-02-08] MEDS: POTASSIUM CHLORIDE ER 20 MEQ TAB.ER PO SCH ×2 (11:01→12:16)
[2019-02-08] MEDS: oxyCODONE ER 10 MG TAB.ER.12H PO SCH (11:09)
--- NOTE | 2019-02-08 15:00 | MR ---
EXAMINATION TYPE: MR brain wo con DATE OF EXAM: 02/08/2019 COMPARISON: CT brain 2 days earlier. HISTORY: Acute onset neural deficit 2 days ago. TECHNIQUE: Multiplanar, multisequence imaging of the brain and brainstem is performed without IV cont rast. FINDINGS: Diffusion weighted images demonstrate under 5 mm focus of increased signal diffusion weighted imaging with diminished signal ADC mapping was subtle T2 hyperintensity felt to reflect evolving acute/subac [place] lacunar infarct near the left frontal parietal junction seen best image 184 series 305. There is no worrisome extra-axial fluid collection diffuse ventricular and sulcal prominence. Scatter ed foci of T2 hyperintensity is seen throughout the white matter bilaterally. Lesions are nonspecific in appearance and distribution but most likely on basis of products of chronic small vessel ischemic change in patient of this age. Estimated 30-40 small scattered lesions. Midline structures demonstrate normal morphology. The craniocervical junction appears within normal limits. Normal vascular flow voids are present. The visualized sinuses are clear and the globes are i ntact. Nasal septum redemonstrated deviated to the left of midline. IMPRESSION: 1. Small focus of acute evolving lacunar infarct left frontoparietal junction at level of centrum autumn i-ovale. 2. Bilateral mild diffuse cerebral atrophy and mild to moderate diffuse chronic small vessel ischemic change redemonstrated.
[2019-02-08] MEDS: TAMSULOSIN 0.4 MG CAP.ER.24H PO SCH (17:28)
[2019-02-08 17:57] VITALS: TEMP 98
[2019-02-08] MEDS: HYDROcodone/APAP 10-325MG 1 EACH TAB PO PRN (19:49)
[2019-02-08 19:59] VITALS: BP 102/61; PULSE 88; RESP 18
[2019-02-08] MEDS ORDERED: ATORVASTATIN 40 MG TAB PO SCH (21:00)
--- NOTE | 2019-02-08 21:08 | PN ---
PROGRESS NOTE DATE OF SERVICE: 02/08/2019 This 68-year-old gentleman, admitted with a history of numbness and weakness on the right side, had a small focus of acute evolving active infarct in the left frontoparietal junction in the MRI scan. The patient is being closely monitored. No chest pain. No palpitations. No fever. Past medical history reviewed. REVIEW OF SYSTEMS: CARDIOVASCULAR SYSTEM: No angina, palpitations. RESPIRATORY SYSTEM: As mentioned earlier. GI: As mentioned earlier. : No dysuria or retention. NERVOUS SYSTEM: No numbness, weakness. Otherwise history as mentioned earlier. CURRENT MEDICATIONS: Reviewed. They include: 1. [place] 10 mg. 2. Zovirax. 3. Eliquis. 4. Aspirin 81 mg daily. 5. Lipitor 40 mg at bedtime. 6. Tums. 7. Proscar. 8. Synthroid. 9. Oxycodone. 10.Vitamin B6. 11.Flomax. 12.Bactrim DS. PHYSICAL EXAMINATION: Patient is alert, oriented x3. Pulse 93, blood pressure 109/72, respirations 16, temperature 97.4, pulse ox 96% on room air. HEENT: Conjunctivae normal. NECK: No jugular venous distention. CARDIOVASCULAR SYSTEM: S1, S2 muffled. RESPIRATORY SYSTEM: Breath sounds diminished at the bases. No rhonchi. No crackles. ABDOMEN: Soft, non-tender. No mass palpable. LEGS: No edema. No swelling. NERVOUS SYSTEM: Higher functions as mentioned earlier. Cranial nerves 2 through 12 grossly intact. Moves all 4 limbs. No focal deficit at this time. SKIN: No ulcer, rash, bleeding. JOINTS: No active deforming arthropathy. LABS: WBC 2.8, hemoglobin 10.4. Sodium 138, potassium 3.4. ASSESSMENT: 1. Acute evolving stroke, lateral infarct involving the left frontoparietal junction causing right-sided neurological symptoms. 2. Multiple myeloma recently diagnosed, on treatment through [facility]. 3. Bicytopenia anemia, leukopenia secondary to multiple myeloma. 4. Hyponatremia. 5. Hypercalcemia. 6. History of deep vein thrombosis. 7. History of hypothyroidism. 8. History of benign prostatic hypertrophy. 9. History of bilateral hip replacement. 10.History of T6 vertebral involvement with right paraspinal mass, possibly secondary to multiple myeloma recently. 11.Mild hyponatremia. 12.FULL CODE. RECOMMENDATIONS AND DISCUSSION: In this 68-year-old gentleman who presented with multiple complex medical issues, I recommend to continue current medications, continue with the monitoring, symptomatic treatment. Otherwise, continue the antiplatelet agents. Continue with anticoagulation. Otherwise, neuro checks. Currently Neurology is not available here. The neurologist who was supposed to see the patient today called in sick, so hence I discussed the case at length with the patient's daughter over the phone, and the daughter is willing for the patient to be transferred to [facility] for further evaluation and treatment. We will contact the counter caser and continue to follow. Prognosis guarded because of multiple complex medical issues. See orders for further details. Further recommendations to follow. MMODL / IJN: [id number] /
--- NOTE | 2019-02-09 07:00 | DS ---
DISCHARGE SUMMARY DATE OF SERVICE: 02/08/2019 FINAL DIAGNOSES: 1. Acute evolving stroke with lacunar infarct involving the left frontoparietal junction causing right-sided neurological symptoms. 2. Multiple myeloma recently diagnosed on treatment in [facility]. 3. Bicytopenia, anemia, leukopenia secondary to multiple myeloma. 4. Hyponatremia. 5. Hypocalcemia. 6. History of deep vein thrombosis. 7. History of hypothyroidism. 8. History of benign prostatic hypertrophy. 9. History of bilateral hip replacement. 10.History of T6 vertebral involvement and right paraspinal mass, possibly secondary to multiple myeloma recently. 11.Mild hyponatremia. 12.FULL CODE. DISCHARGE DISPOSITION: The patient was discharged/transferred to [facility]. HISTORY OF PRESENT ILLNESS: This 68-year-old gentleman with past medical history of multiple medical problems admitted with features of weakness and slurring of speech on the right side. Evaluation including MRI showed possible evolving stroke on the lacunar infarct in the left frontoparietal junction. The patient was evaluated, but, however, we do not have neurology coverage today and hence the patient was transferred to [facility] in stable condition with guarded prognosis. Please refer to the multiple progress notes and other staff notes for further information. Prognosis remains guarded, but the patient is currently medically stable. MMODL / IJN: [id number] /
[2019-02-13] MEDS ORDERED: SULFAMETHOX-TMP 800-160MG 1 EACH TAB PO SCH (09:00)
[2019-02-13] MEDS ORDERED: BORTEZOMIB IV SCH (09:00)
== END 2019-02-08 20:34 | disposition short-term general hospital (02) | DRG 65 ==
LOC: EC 10:03 → 3SCARD 13:40 → OBSVTOIN 02-08 15:10
PROVIDERS: ADMIT Internal Medicine; ATTEND Internal Medicine
DX: I63.81 Other cerebral infarction due to occlusion or stenosis of small artery (principal); C90.00 Multiple myeloma not having achieved remission; D68.59 Other primary thrombophilia; E87.1 Hypo-osmolality and hyponatremia; M84.459A Pathological fracture, hip, unspecified, initial encounter for fracture; G81.91 Hemiplegia, unspecified affecting right dominant side; D64.9 Anemia, unspecified; D72.819 Decreased white blood cell count, unspecified; E03.9 Hypothyroidism, unspecified; E78.5 Hyperlipidemia, unspecified; E83.51 Hypocalcemia; I10 Essential (primary) hypertension; N40.0 Benign prostatic hyperplasia without lower urinary tract symptoms; Z79.01 Long term (current) use of anticoagulants; Z79.890 Hormone replacement therapy; Z80.1 Family history of malignant neoplasm of trachea, bronchus and lung; Z86.718 Personal history of other venous thrombosis and embolism; Z96.643 Presence of artificial hip joint, bilateral; Z79.899 Other long term (current) drug therapy; R47.81 Slurred speech; R29.700 NIHSS score 0
CPT/HCPCS: 36415; 70450; 70496; 70498; 70551; 71046; 80048; 80053; 80061; 81003; 84484; 85025; 85610; 85730; 93005; 96360; 96361; 99285

== ENCOUNTER 2019-07-05 15:34 | Emergency (ER) | payer MEDICARE, BC ==
[2019-07-05 16:06] VITALS: TEMP 98.5
--- NOTE | 2019-07-05 17:01 | US ---
EXAMINATION TYPE: US venous doppler duplex LE LT DATE OF EXAM: 07/05/2019 4:20 PM COMPARISON: NONE CLINICAL HISTORY: r/o dvt. History of DVT, patient currently taking blood thinners SIDE PERFORMED: Left TECHNIQUE: The lower extremity deep venous system is examined utilizing real time linear array sonog alvaro with graded compression, doppler sonography and color-flow sonography. VESSELS IMAGED: External Iliac Vein (EIV) Common Femoral Vein Deep Femoral Vein Greater Saphenous Vein * Femoral Vein Popliteal Vein Small Saphenous Vein * Proximal Calf Veins (* superficial vessels) Left Leg: Non-occluding, chronic appearing DVT visualized left mid popliteal vein IMPRESSION: There is evidence of some mild chronic deep vein thrombosis in the left popliteal vein. N o sign of acute deep vein thrombosis.
--- NOTE | 2019-07-05 17:31 | ED ---
Extremity Problem HPI - General Chief complaint: Extremity Problem,Nontraumatic Stated complaint: possible blood clot Time Seen by Provider: 07/05/19 16:19 Source: patient Mode of arrival: ambulatory Limitations: no limitations - History of Present Illness Initial comments: 69-year-old male with history of multiple myeloma with previous DVT history presenting for evaluation of left mid calf pain. Patient states she has chronic on and off swelling of the legs bilaterally secondary to his chemotherapy for multiple myeloma. Patient states he noticed some slight mid calf pain for the past few days. Patient denies any chest pain shortness of breath he denies any redness of the skin or inability to ambulate. Patient denies any direct injury or falls. Patient states he's been compliant with his medication of eliquis. Patient denies additional complaint he was concerned of new blood clot and presented to the ER for evaluation. UPon arrival patient appears well no distress, VS WITHIN ACCEPTABLE LIMITS. - Related Data Home Medications Medication Instructions Recorded Confirmed Finasteride [Proscar] 5 mg PO DAILY 10/14/18 02/06/19 Levothyroxine Sodium [Synthroid] 12.5 mcg PO DAILY 10/14/18 02/07/19 Simvastatin [Zocor] 20 mg PO HS 10/14/18 02/06/19 Tamsulosin HCl [Flomax] 0.4 mg PO DAILY@1800 10/14/18 02/06/19 Acyclovir 400 mg PO DAILY@0900,1800 02/06/19 02/06/19 Apixaban [Eliquis] 5 mg PO BID 02/06/19 02/06/19 Bortezomib 1.3 mg IV Q7DAYS 02/06/19 02/06/19 Calcium Carbonate [Tums] 1,000 mg PO DAILY 02/06/19 02/06/19 Cholecalciferol [Vitamin D3 (25 1,000 unit PO DAILY 02/06/19 02/06/19 Mcg = 1000 Iu)] Dexamethasone 20 mg PO DIRECTED 02/06/19 02/06/19 HYDROcodone/APAP 10-325MG [[place] 1 tab PO Q4HR PRN 02/06/19 02/06/19 10-325] Lenalidomide [Revlimid] 25 mg PO DIRECTED 02/06/19 02/07/19 Pantoprazole [Protonix] 40 mg PO DAILY 02/06/19 02/06/19 Prochlorperazine [Compazine] 10 mg PO Q6H PRN 02/06/19 02/06/19 Pyridoxine [Vitamin B-6] 100 mg PO BID@0900,1800 02/06/19 02/07/19 Sulfamethox-Tmp 800-160Mg [Bactrim 1 tab PO DIRECTED 02/06/19 02/06/19 DS 800-160 mg] Previous Rx's Medication Instructions Recorded Apixaban [Eliquis] 10 mg PO BID 7 Days #14 tab 07/05/19 Allergies Allergy/AdvReac Type Severity Reaction Status Date / Time No Known Allergies Allergy Verified 07/05/19 16:06 Review of Systems ROS Statement: Those systems with pertinent positive or pertinent negative responses have been documented in the HPI. ROS Other: All systems not noted in ROS Statement are negative. Past Medical History Past Medical History: Deep Vein Thrombosis (DVT), Hyperlipidemia, Thyroid Disorder Additional Past Medical History / Comment(s): BPH, previous history of DVT with hypercoagulability maintained on long-term and to coagulation with eliquis hyperlipidemia History of Any Multi-Drug Resistant Organisms: None Reported Past Surgical History: No Surgical Hx Reported Additional Past Surgical History / Comment(s): Oct 23 bilateral hip replacement right full partial left. Oct 28 Back surgery- removal of tumor Past Anesthesia/Blood Transfusion Reactions: No Reported Reaction Past Psychological History: No Psychological Hx Reported Smoking Status: Never smoker Past Alcohol Use History: Occasional Past Drug Use History: None Reported - Past Family History Father Family Medical History: Cancer, Prostate Disorder Brother(s) Family Medical History: Prostate Disorder General Exam - General Exam Comments Initial Comments: General: The patient is awake and alert, in no distress Eye: Pupils are equal, round and reactive to light, extra-ocular movements are intact. No nystagmus. There is normal conjunctiva bilaterally. No signs of icterus. Cardiovascular: There is a regular rate and rhythm. No murmur, rub or gallop is appreciated. Respiratory: Lungs are clear to auscultation, respirations are non-labored, breath sounds are equal. No wheezes, stridor, rales, or rhonchi. Musculoskeletal: Normal ROM, no tenderness. Strength 5/5. Sensation intact. DP and radial pullses equal bilaterally 2+. Neurological: A&O x 3. CN II-XII intact grossly, There are no obvious motor or sensory deficits. Coordination appears grossly intact. Speech is normal. Skin: Skin is warm and dry and no rashes or lesions are noted. Mild soft tissue swelling of the lower extremity is normal bilaterally slight increase of the left calf in comparison with the right. No pitting edema pain to palpation of the mid calf. Psychiatric: Cooperative, appropriate mood & affect, normal judgment. Limitations: no limitations Course Vital Signs 07/05/19 07/05/19 16:02 18:10 Temperature 98.5 F Pulse Rate 86 65 Respiratory 18 16 Rate Blood Pressure 127/74 128/79 O2 Sat by Pulse 97 98 Oximetry Medical Decision Making - Medical Decision Making Ultrasound revealed a chronic DVT of the popliteal vein that is non-obstructive. It did not appear acute. Patient has had THIS I discussed this with my attending provider Dr Ca who recommended increasing her request to 10 mg twice a day for 1 week and then resuming his previously prescribed 5 mg twice a day.Patient is agreeable to this care plan and repeated plan verbally in regards to eliquis dosing. Patient has no CP/SOB and lungs clear. He is agreeable prefers discharge at this time return parameters discussed at length including signs and symptoms of pulmonary embolism or worsening DVT patient was discharged appearing well Dr. Yañez agreeable to this care plan discharge at this time. Disposition Clinical Impression: Chronic deep vein thrombosis of left lower extremity Disposition: HOME SELF-CARE Condition: Good Instructions (If sedation given, give patient instructions): Deep Vein Throm bosis (ED) Additional Instructions: Please use medication as discussed. Please follow-up with family doctor in the next 2 days, take 10mg of eliquis twice daily for one week, then resume normal dosing of 5mg twice daily. IMMEDIATE RETURN FOR SHORTNESS OF BREATH OR CHEST PAIN. Please return to emergency room if the symptoms increase or worsen or for any other concerns. Prescriptions: Apixaban [Eliquis] 10 mg PO BID 7 Days #14 tab Is patient prescribed a controlled substance at d/c from ED?: No Referrals: Elver Blanchard PAC [Primary Care Provider] - 1-2 days Time of Disposition: 17:30
[2019-07-05 18:38] VITALS: BP 128/79; PULSE 65; RESP 16
== END 2019-07-05 18:10 | disposition home or self-care (01) ==
LOC: EC 15:34
DX: I82.532 Chronic embolism and thrombosis of left popliteal vein (principal); E78.5 Hyperlipidemia, unspecified; E07.9 Disorder of thyroid, unspecified; Z79.890 Hormone replacement therapy; Z79.01 Long term (current) use of anticoagulants; Z79.899 Other long term (current) drug therapy; Z96.643 Presence of artificial hip joint, bilateral; Z85.79 Personal history of other malignant neoplasms of lymphoid, hematopoietic and related tissues
CPT/HCPCS: 99283

== ENCOUNTER 2021-01-20 06:52 | Emergency (ER) | payer MEDICARE, BC ==
--- NOTE | 2021-01-20 07:46 | ED ---
General Adult HPI - General Chief complaint: Upper Respiratory Infection Stated complaint: COVID+ Time Seen by Provider: 01/20/21 07:12 Source: patient, RN notes reviewed Mode of arrival: ambulatory Limitations: no limitations - History of Present Illness Initial comments: Patient is a pleasant 70-year-old male presenting to the emergency department with concern for COVID-19 infection. Onset of symptoms was 1 week ago. Patient did have positive test. Patient has significant fatigue. Patient has loss of taste and smell. Patient has decreased appetite. No nausea vomiting or diarrhea. Patient has had fevers chills and myalgias. Patient does have cough with some mild dyspnea. No headache. Patient does have history of multiple myeloma that is in remission. - Related Data Home Medications Medication Instructions Recorded Confirmed Finasteride [Proscar] 5 mg PO DAILY 10/14/18 02/06/19 Levothyroxine Sodium [Synthroid] 12.5 mcg PO DAILY 10/14/18 02/07/19 Simvastatin [Zocor] 20 mg PO HS 10/14/18 02/06/19 Tamsulosin HCl [Flomax] 0.4 mg PO DAILY@1800 10/14/18 02/06/19 Acyclovir 400 mg PO DAILY@0900,1800 02/06/19 02/06/19 Apixaban [Eliquis] 5 mg PO BID 02/06/19 02/06/19 Bortezomib 1.3 mg IV Q7DAYS 02/06/19 02/06/19 Calcium Carbonate [Tums] 1,000 mg PO DAILY 02/06/19 02/06/19 Cholecalciferol [Vitamin D3 (25 1,000 unit PO DAILY 02/06/19 02/06/19 Mcg = 1000 Iu)] HYDROcodone/APAP 10-325MG [[place] 1 tab PO Q4HR PRN 02/06/19 02/06/19 10-325] Lenalidomide [Revlimid] 25 mg PO DIRECTED 02/06/19 02/07/19 Pantoprazole [Protonix] 40 mg PO DAILY 02/06/19 02/06/19 Prochlorperazine [Compazine] 10 mg PO Q6H PRN 02/06/19 02/06/19 Pyridoxine [Vitamin B-6] 100 mg PO BID@0900,1800 02/06/19 02/07/19 Sulfamethox-Tmp 800-160Mg [Bactrim 1 tab PO DIRECTED 02/06/19 02/06/19 DS 800-160 mg] dexAMETHasone 20 mg PO DIRECTED 02/06/19 02/06/19 Previous Rx's Medication Instructions Recorded Apixaban [Eliquis] 10 mg PO BID 7 Days #14 tab 07/05/19 Allergies Allergy/AdvReac Type Severity Reaction Status Date / Time No Known Allergies Allergy Verified 01/20/21 07:03 Review of Systems ROS Statement: Those systems with pertinent positive or pertinent negative responses have been documented in the HPI. ROS Other: All systems not noted in ROS Statement are negative. Constitutional: Reports: fever, chills Eyes: Denies: eye pain ENT: Reports: congestion. Denies: ear pain Respiratory: Reports: as per HPI, cough Cardiovascular: Denies: chest pain Endocrine: Reports: fatigue Gastrointestinal: Denies: abdominal pain Genitourinary: Denies: dysuria Musculoskeletal: Denies: back pain Skin: Denies: rash Neurological: Denies: weakness Past Medical History Past Medical History: Cancer, Deep Vein Thrombosis (DVT), Hyperlipidemia, Thyroid Disorder Additional Past Medical History / Comment(s): BPH, previous history of DVT with hypercoagulability maintained on long-term and to coagulation with eliquis hyperlipidemia multiple myeloma History of Any Multi-Drug Resistant Organisms: None Reported Past Surgical History: No Surgical Hx Reported Additional Past Surgical History / Comment(s): Oct 23 bilateral hip replacement right full partial left. Oct 28 Back surgery- removal of tumor Past Anesthesia/Blood Transfusion Reactions: No Reported Reaction Past Psychological History: No Psychological Hx Reported Past Alcohol Use History: Occasional Past Drug Use History: None Reported - Past Family History Father Family Medical History: Cancer, Prostate Disorder Brother(s) Family Medical History: Prostate Disorder General Exam Limitations: no limitations General appearance: alert, in no apparent distress Head exam: Present: normocephalic Eye exam: Present: normal appearance Neck exam: Present: normal inspection Respiratory exam: Present: normal lung sounds bilaterally Cardiovascular Exam: Present: regular rate, normal rhythm GI/Abdominal exam: Present: soft. Absent: tenderness Extremities exam: Present: normal inspection Neurological exam: Present: alert Psychiatric exam: Present: normal affect, normal mood Skin exam: Present: normal color Course Vital Signs 01/20/21 01/20/21 07:03 07:20 Temperature 98 F Pulse Rate 105 H Respiratory 18 22 Rate Blood Pressure 96/62 O2 Sat by Pulse 96 Oximetry Medical Decision Making - Lab Data Lab Results 01/20/21 Range/Units 07:27 Coronavirus (PCR) Detected A (Not Detectd) Disposition Clinical Impression: COVID-19 Disposition: HOME SELF-CARE Condition: Stable Instructions (If sedation given, give patient instructions): Coronavirus Disease 2019 (COVID-19) Additional Instructions: Please follow-up with primary care physician and your oncologist beginning of the week. Return for difficulty breathing, not tolerating fluids, worsening symptoms or any other concerns. [id number] vitamin C, vitamin D, and zinc to help. Melatonin at bedtime may help as well. Is patient prescribed a controlled substance at d/c from ED?: No Referrals: Elver Blanchard PAC [Primary Care Provider] - 1-2 days Time of Disposition: 07:44
[2021-01-20] MEDS ORDERED: SODIUM CHLORIDE 0.9% 500 ML 500 ML IV STA (07:49)
[2021-01-20 08:35] VITALS: TEMP 98.4
[2021-01-20] MEDS ORDERED: BAMLANIVIMAB (EUA) 700 MG, ETESEVIMAB (EUA) 1,400 MG in SODIUM CHLORIDE 0.9% 50 ML IVPB ONE (09:00)
[2021-01-20] MEDS ORDERED: SODIUM CHLORIDE 0.9% 50 ML IVPB ONE (09:00)
[2021-01-20 10:33] VITALS: BP 111/75; PULSE 91; RESP 16
== END 2021-01-20 10:32 | disposition home or self-care (01) ==
LOC: EC 06:52
DX: U07.1 COVID-19 (principal); Z86.718 Personal history of other venous thrombosis and embolism; E78.5 Hyperlipidemia, unspecified; Z72.89 Other problems related to lifestyle; Z79.01 Long term (current) use of anticoagulants
CPT/HCPCS: 99283 ×2; 96360 ×2; 87635; M0239; J3490